=== PATIENT | male | born 1945 | race Caucasian/White ===

== ENCOUNTER → 2024-08-04 07:53 | Outpatient (REF) | payer MEDICARE, OTHER, SELFPAY ==
[2024-08-04 09:33] LABS: % Basophils 1.1 % (0-2); % Eosinophils 5.2 % (0-6); % Immature Granulocytes 0.1 % (0-0.5); % Lymphocytes 28.5 % (20.5-51.1); % Monocytes 9.2 % (1.7-9.3); % Neutrophils 55.9 % (42.2-75.2); Absolute Basophils 0.1 10^3/uL (0-0.2); Absolute Eosinophils 0.4 10^3/uL (0-0.7); Absolute Lymphocytes 2.1 10^3/uL (1.2-3.4); Absolute Monocytes 0.7 10^3/uL (0.1-0.6); Absolute Neutrophils 4.1 10^3/uL (1.4-6.5); Hematocrit 45.5 % (39.0-52.0); Hemoglobin 15.1 g/dL (13.0-18.0); Mean Corp Hgb Conc. 33.2 g/dL (33.0-37.0); Mean Corpuscular Volume 93.4 fL (80.0-94.0); Mean Platelet Volume 9.6 fL (7.4-10.4); Nucleated Red Blood Cells % 0 % (-); Platelet Count 217 10^3/uL (130-400); Red Blood Cell Count 4.87 10^6/uL (4.70-6.10); White Blood Cell Count 7.4 10^3/uL (4.8-10.8)
[2024-08-04 10:37] LABS: ALT (SGPT) 20 U/L (0-50); AST (SGOT) 26 U/L (17-59); Alkaline Phosphatase 58 U/L (38-126); Blood Urea Nitrogen 25 mg/dl (9-20); Calcium 9.3 mg/dl (8.4-10.2); Carbon Dioxide 31 mmol/L (22-30); Chloride 104 mmol/L (98-107); Glucose 100 mg/dl (70-99); HDL Cholesterol 59 mg/dl; LDL Cholesterol, Calculated 130 mg/dl; Potassium 4.1 mmol/L (3.5-5.1); Sodium 140 mmol/L (135-145); Total Bilirubin 0.9 mg/dl (0.2-1.3); Total Cholesterol 209 mg/dl (50-199); Total Protein 6.7 g/dl (6.3-8.2); Triglyceride 103 mg/dl (10-149); Very Low Density Lipoprotein 20 mg/dl (0-30); eGFR 56.93
[2024-08-04 11:01] LABS: Vitamin D, 25-OH*** 68.7 ng/mL (30-80)
[2024-08-04 11:07] LABS: TSH 4.52 uIU/ml (0.47-4.68)
== END ==
LOC: HWLAB 07:53
PROVIDERS: ATTENDING PHYSICIAN Internal Medicine Geriatric Medicine
DX: E78.2 Mixed hyperlipidemia (principal); E03.8 Other specified hypothyroidism; I10 Essential (primary) hypertension; Z79.899 Other long term (current) drug therapy; E55.9 Vitamin D deficiency, unspecified
CPT/HCPCS: 36415; 80053; 80061; 82306; 84443; 85025

== ENCOUNTER 2024-11-24 21:13 | Inpatient (IN) | payer MEDICARE, OTHER, SELFPAY ==
[2024-11-24] VITALS (15 sets, daily range): BP systolic 155–201; BP diastolic 81–102; BMI 29.1
[2024-11-24 16:08] LABS: Hematocrit 44.1 % (39.0-52.0); Hemoglobin 15.1 g/dL (13.0-18.0); Mean Corp Hgb Conc. 34.2 g/dL (33.0-37.0); Mean Corpuscular Hgb 31.1 pg (27.0-31.0); Mean Corpuscular Volume 90.7 fL (80.0-94.0); Mean Platelet Volume 9.8 fL (7.4-10.4); Platelet Count 204 10^3/uL (130-400); Red Blood Cell Count 4.86 10^6/uL (4.70-6.10); Red Cell Dist. Width 13.8 % (11.5-14.5); White Blood Cell Count 33.8 10^3/uL (4.8-10.8)
[2024-11-24] MEDS: ZOFRAN 4 MG IV (16:11)
[2024-11-24] MEDS: NSS 1000 IV (16:12)
[2024-11-24 16:16] LABS: ALT (SGPT) 32 U/L (0-50); AST (SGOT) 36 U/L (17-59); Albumin 4.1 g/dl (3.5-5.0); Alkaline Phosphatase 75 U/L (38-126); Blood Urea Nitrogen 89 mg/dl (9-20); Calcium 9.8 mg/dl (8.4-10.2); Carbon Dioxide 17 mmol/L (22-30); Chloride 102 mmol/L (98-107); Estimated Creatinine Clearance 7 ml/min; Glucose 151 mg/dl (70-99); Lipase 29 U/L (23-300); Potassium 5.9 mmol/L (3.5-5.1); Sodium 137 mmol/L (135-145); Total Bilirubin 1.1 mg/dl (0.2-1.3); Total Protein 7.1 g/dl (6.3-8.2); eGFR 5.27
--- NOTE | 2024-11-24 16:38 | ED.GENMED ---
History of Present Illness
<Cornelius Groves DO - Last Filed: 11/24/24 16:41>
General
Chief Complaint: Dehydration Symptoms
Time Seen by Provider: 11/24/24 15:38
<Paul Walsh PA-C - Last Filed: 11/24/24 19:07>
General
Source: patient and family
History of Present Illness
History of Present Illness:
79-year-old male with past medical history of hypertension presenting to the emergency department for evaluation stating he feels as if he is dehydrated, notes that about a week ago he was coughing/vomiting a phlegm/mucus, went to [facility]
urgent care and was given 'some type of tablet to make the phlegm go away' which he states he did. Patient also noted some nausea at that time but states that seem to have gotten better. He does note that over the last week he feels he has not
eaten or drank as much, has not had a bowel movement in about 4 to 5 days, no flatus during that time as well as had minimal urinary output. Patient denies any fevers, chills, rigors, chest pain or shortness of breath. Denies any history of
similar.
Past History
<Paul Walsh PA-C - Last Filed: 11/24/24 19:07>
Past History
ED Past Medical History: HTN
ED Past Surgical History: None
Social History
Tobacco: Non-smoker
Alcohol: None
Drug: None
Personal:
Living: with family
Employment: Retired
Review of Systems
<Paul Walsh PA-C - Last Filed: 11/24/24 19:07>
Review of Systems
All Other Systems: ROS reviewed and negative except as documented in HPI and ROS
Phy Exam
<Paul Walsh PA-C - Last Filed: 11/24/24 19:07>
Physical Exam
Physical Exam:
GENERAL: Alert , in no apparent distress, appears older than stated age, pale in appearance
HEAD: Normocephalic atraumatic
EYE: Clear conjunctiva
NECK: Supple
ENT: o/p clr, mmm.
CARDIAC: Regular rate and rhythm .
LUNGS: Clear breath sounds bilaterally, no acute respiratory distress, no wheezes/rales/rhonchi
ABDOMEN: Firm, distended, tender within the periumbilical region and suprapubic region, no rebound or guarding
NEUROLOGICAL: Alert and oriented
SKIN: Warm and dry, skin intact.
MUSCULOSKELETAL: well perfused.
PSYCH: Normal and appropriate interaction.
Scores
<Paul Walsh PA-C - Last Filed: 11/24/24 19:07>
Heart Failure Risk
Heart Failure Risk Score: Not Applicable
Heart Score for Chest Pain Patients
STEMI patient?: Not applicable
Withdrawal Assessment of Alcohol
Withdrawal Assessment Completed?: Not applicable
Course
<Cornelius Groves, DO - Last Filed: 11/24/24 16:41>
Orders/Labs/Results
Orders:
Orders
11/24/24 15:48
Complete Blood Count/With Diff Urgent
Comprehensive Metabolic Panel Urgent
Lipase Urgent
11/24/24 16:06
Diaz Placement- Treatment ONCE
Reason for insertion: Acute Retention
0.9% Sodium Chloride 1000 ml [Nss] 1,000 ml IV BOLUS
Iohexol [Omnipaque] See Protocol PO NOW STA
Ondansetron Injectable [Zofran] 4 mg IV NOW STA
11/24/24 16:16
Lactic Acid Q4H
Comment: CANCEL 2nd LACTIC ACID IF 1st LACTIC ACID IS LESS THAN 2
Blood Culture Q30M
ROLANDO Source: Blood/Venous
Specimen Description:
Blood Culture Q30M
ROLANDO Source: Blood/Venous
Specimen Description:
11/24/24 16:24
CT Abd/pel Without Iv Or Oral Urgent
Comment:
Reason For Exam: renal failure, abd pain
11/24/24 16:38
CefTRIAXone [Rocephin] 1,000 mg IV NOW STA
11/24/24 16:42
UA Reflex to Culture [Urinalysis Reflex To Culture] Urgent
Date Specimen was Collected: 11/24/24
Time Specimen was Collected: 16:41
Urine Microscopic Reflex Cult Urgent
11/24/24 17:[address] Non Medication Order As Directed
Physician Order: clamp diaz (at 5pm)- drain remained of bladder at 5:30 and leave diaz to bag drainage
Above order entered?: Yes
11/24/24 17:19
Catheter- Indwelling As Directed
Reason for insertion: Urology Determination
Catheter-Hand Irrigation As Directed
Solution:: Sterile 0.9% NaCl
Amount: 100-200cc
Frequency: prn
Reason for hand irrigation: clots/obstruction
Irrigate via:: Catheter directly
Abnormal Lab Results
11/24/24 11/24/24
15:48 16:42
WBC 33.8 H 10^3/uL
(4.8-10.8)
MCH 31.1 H pg
(27.0-31.0)
Abs Immat Gran (auto) 0.2 H 10^3/uL
(0-0.05)
Absolute Neuts (auto) 31.3 H 10^3/uL
(1.4-6.5)
Absolute Lymphs (auto) 0.5 L 10^3/uL
(1.2-3.4)
Absolute Monos (auto) 1.7 H 10^3/uL
(0.1-0.6)
Immature Gran % 0.7 H %
(0-0.5)
Neutrophils % 92.6 H %
(42.2-75.2)
Lymphocytes % 1.4 L %
(20.5-51.1)
Potassium 5.9 H mmol/L
(3.5-5.1)
Carbon Dioxide 17 L mmol/L
(22-30)
BUN 89 H mg/dl
(9-20)
Creatinine 9.4 H* mg/dL
(0.7-1.3)
Glucose 151 H mg/dl
(70-99)
Ur Occult Blood Reflex 2+ A
(Negative)
Urine RBC 11-15 A /HPF
(0-2)
Urine Bacteria (Reflex) Few A
(Negative)
Urine Albumin (Reflex) 1+ A
(Neg - Trace)
11/24/24 15:48
11/24/24 15:48
Vital Signs
Initial and Last Documented VS:
Initial Vital Signs
Temp Pulse Resp BP Pulse Ox
98.5 F 78 16 178/102 95
11/24/24 14:50 11/24/24 14:50 11/24/24 14:50 11/24/24 14:50 11/24/24 14:50
Last Documented Vital Signs
Temp Pulse Resp BP Pulse Ox
98.5 F 76 16 168/81 97
11/24/24 14:50 11/24/24 17:00 11/24/24 14:50 11/24/24 18:00 11/24/24 18:15
<Paul Walsh PA-C - Last Filed: 11/24/24 19:07>
Orders/Labs/Results
Orders:
Orders
11/24/24 15:48
Complete Blood Count/With Diff Urgent
Comprehensive Metabolic Panel Urgent
Lipase Urgent
11/24/24 16:06
Diaz Placement- Treatment ONCE
Reason for insertion: Acute Retention
0.9% Sodium Chloride 1000 ml [Nss] 1,000 ml IV BOLUS
Iohexol [Omnipaque] See Protocol PO NOW STA
Ondansetron Injectable [Zofran] 4 mg IV NOW STA
11/24/24 16:16
Lactic Acid Q4H
Comment: CANCEL 2nd LACTIC ACID IF 1st LACTIC ACID IS LESS THAN 2
Blood Culture Q30M
ROLANDO Source: Blood/Venous
Specimen Description:
Blood Culture Q30M
ROLANDO Source: Blood/Venous
Specimen Description:
11/24/24 16:24
CT Abd/pel Without Iv Or Oral Urgent
Comment:
Reason For Exam: renal failure, abd pain
11/24/24 16:38
CefTRIAXone [Rocephin] 1,000 mg IV NOW STA
11/24/24 16:42
UA Reflex to Culture [Urinalysis Reflex To Culture] Urgent
Date Specimen was Collected: 11/24/24
Time Specimen was Collected: 16:41
Urine Microscopic Reflex Cult Urgent
11/24/24 17:[address] Non Medication Order As Directed
Physician Order: clamp diaz (at 5pm)- drain remained of bladder at 5:30 and leave diaz to bag drainage
Above order entered?: Yes
11/24/24 17:19
Catheter- Indwelling As Directed
Reason for insertion: Urology Determination
Catheter-Hand Irrigation As Directed
Solution:: Sterile 0.9% NaCl
Amount: 100-200cc
Frequency: prn
Reason for hand irrigation: clots/obstruction
Irrigate via:: Catheter directly
Abnormal Lab Results
11/24/24 11/24/24
15:48 16:42
WBC 33.8 H 10^3/uL
(4.8-10.8)
MCH 31.1 H pg
(27.0-31.0)
Abs Immat Gran (auto) 0.2 H 10^3/uL
(0-0.05)
Absolute Neuts (auto) 31.3 H 10^3/uL
(1.4-6.5)
Absolute Lymphs (auto) 0.5 L 10^3/uL
(1.2-3.4)
Absolute Monos (auto) 1.7 H 10^3/uL
(0.1-0.6)
Immature Gran % 0.7 H %
(0-0.5)
Neutrophils % 92.6 H %
(42.2-75.2)
Lymphocytes % 1.4 L %
(20.5-51.1)
Potassium 5.9 H mmol/L
(3.5-5.1)
Carbon Dioxide 17 L mmol/L
(22-30)
BUN 89 H mg/dl
(9-20)
Creatinine 9.4 H* mg/dL
(0.7-1.3)
Glucose 151 H mg/dl
(70-99)
Ur Occult Blood Reflex 2+ A
(Negative)
Urine RBC 11-15 A /HPF
(0-2)
Urine Bacteria (Reflex) Few A
(Negative)
Urine Albumin (Reflex) 1+ A
(Neg - Trace)
11/24/24 15:48
11/24/24 15:48
Vital Signs
Initial and Last Documented VS:
Initial Vital Signs
Temp Pulse Resp BP Pulse Ox
98.5 F 78 16 178/102 95
11/24/24 14:50 11/24/24 14:50 11/24/24 14:50 11/24/24 14:50 11/24/24 14:50
Last Documented Vital Signs
Temp Pulse Resp BP Pulse Ox
98.5 F 76 16 168/81 97
11/24/24 14:50 11/24/24 17:00 11/24/24 14:50 11/24/24 18:00 11/24/24 18:15
Procedures
<Cornelius Groves DO - Last Filed: 11/24/24 16:41>
Urinary Catheter
Procedure completed by: Cornelius Groves DO
Type of urinary catheter: indwelling catheter
Catheter size (hebrew): 14
Urine description: clear
Urine output (ml): 100
<Paul Walsh PA-C - Last Filed: 11/24/24 19:07>
MDM/Problems Addressed
Differential Diagnosis Includes:
Bowel obstruction, constipation, diverticulitis, electrolyte derangement, urinary tract infection, urinary retention, prostatitis/BPH
MDM/Problems Addressed:
79-year-old male presenting to the ER stating he feels as if he is dehydrated. Patient has not had any nausea vomiting or diarrhea but does note he has not had a bowel movement nor flatus over the last few days and has had minimal urinary output.
Bedside bladder scan shows almost 1100 mL of urine within the bladder. Will place Diaz catheter for this. Lab work was initiated on arrival. CT scan with oral and IV contrast ordered for suspicion of bowel obstruction. Anticipate admission
<Paul Walsh PA-C - Last Filed: 11/24/24 19:07>
*Radiology
Radiology exam reviewed: radiology read reviewed
*Pulse Oximetry
Patient hypoxic: no
*Air Tester Interpretation
Rate: normal
Rhythm: sinus
*Critical Care Note
Total Time (30-74mins, 75-104mins- exclusive of procedures): 35
comment:
Critical care statement: A total of 35 minutes of critical care time was provided for this patient. This includes management of unstable vital signs, evaluation of the patient at bedside, reviewing the patient's pertinent medical records, discussion
with consultants, review of old EKGs and review of pertinent medical records. This time with separate from time utilized to perform the aforementioned documented procedures
Data Reviewed
Review of Other/Old Records Reveals: Labs and Records
Source: patient and records
<Paul Walsh PA-C - Last Filed: 11/24/24 19:07>
Comment
Comment:
4:30 PM - patient's labs show a leukocytosis of 33,000. There is also significant uremia with a creatinine of 9.4, BUN of 89, bicarb of 17 and a potassium of 5.9. I suspect this is all from obstructive uropathy. Patient with hypospadias and
difficulty placing Diaz catheter. Dr. Groves able to place 14 Angolan Diaz catheter which drained significant clear yellow urine. Given patient's cute kidney injury his CT scan was changed to a noncontrast study. Both urology and nephrology were
notified. Rocephin ordered. Plan for admission
Patient Management
Discussion with other providers: Hospitalist and Pilot Can Router
Escalation/DeEscalation of care consider admission/obs:
Hospitalist team accepts for continued evaluation and treatment of acute renal failure that is likely related to patient's acute urinary retention
ED Attending Note
<Cornelius Groves, - Last Filed: 11/24/24 16:41>
ED Attending Note
Patient seen and examined by attending physician: Yes
I performed the substantive portion of visit, reviewed & personally made and approve the management plan that is documented in note by myself or HALI.: Yes
ED Attending Note:
I have seen and evaluated the patient with a [id number] encounter. I have spoken to the advance practicer provider and involved in the medical history, the physical exam, medical decision making.
Evaluation and management service: agree unless noted differently below.
Results interpretation: agree unless noted differently below.
Focused HPI: 79-year-old male presenting for evaluation of generalized fatigue and dehydration
Physical exam: Palpable bladder. Generalized fatigue. No acute distress
Medical Decision Making: Blood work shows acute renal failure. Patient found to have distended bladder. Patient does have hypospadias and nursing unable to pass catheter. I did place a 14 Angolan catheter without complication. Clear yellow urine
started to drain
<Paul Walsh PA-C - Last Filed: 11/24/24 19:07>
-
Portions of this chart may have been created with voice recognition software.� Occasional wrong word or��sound alike� substitutions may have occurred due to the inherent limitations of voice recognition software.
Discharge Plan
Departure
Patient Disposition: Admit
Date of Disposition: 11/24/24
Time of Disposition: 18:19
Presentation/result/management discussed w/ accepting MD/DO: Hospitalist
Discharge Problem:
Acute renal failure
Prescriptions:
No Action
Theragen Tablet
1 tab PO DAILY
bisacodyl [Dulcolax (bisacodyl)] 10 mg Suppository
10 mg TN DAILYPRN PRN (Reason: constipation)
ondansetron 4 mg Tablet,Disintegrating
4 mg PO [id number] PRN (Reason: nausea)
finasteride 5 mg Tablet
5 mg PO DAILY
olmesartan 20 mg Tablet
20 mg PO DAILY
Referrals:
Jagjit Hernandez MD [Family Provider] -
Interventions
Interventions:
*Risk Screen - Suicide Last Done: 11/24/24 14:50
*General Assessment Last Done: 11/24/24 14:50
*Neglect/Abuse Screening Last Done: 11/24/24 16:13
*ED- Fall Risk Assessment Last Done: 11/24/24 16:13
*ED COVID-19 Vaccine History Last Done: 11/24/24 14:50
ED- Cardiac Assessment Last Done: 11/24/24 16:46
ED- Neurological Assessment Last Done: 11/24/24 16:46
ED- Pulmonary Assessment Last Done: 11/24/24 16:46
Discharge Date and Time
Print Language: DIVEHI
[2024-11-24] MEDS: ROCEPHIN 1000 MG IV (16:40)
[2024-11-24 16:46] LABS: % Basophils 0.3 % (0-2); % Immature Granulocytes 0.7 % (0-0.5); % Lymphocytes 1.4 % (20.5-51.1); % Neutrophils 92.6 % (42.2-75.2); Absolute Basophils 0.1 10^3/uL (0-0.2); Absolute Immature Granulocytes 0.2 10^3/uL (0-0.05); Absolute Lymphocytes 0.5 10^3/uL (1.2-3.4); Absolute Monocytes 1.7 10^3/uL (0.1-0.6); Absolute Neutrophils 31.3 10^3/uL (1.4-6.5); Nucleated Red Blood Cells % 0 % (-)
[2024-11-24 16:49] LABS: Urine Albumin 1+ (Neg - Trace); Urine Bilirubin Negative (Negative); Urine Character Clear (Clear); Urine Color Yellow; Urine Glucose Negative (Negative); Urine Ketone Negative (Negative); Urine Leukocyte Negative (Negative); Urine Nitrite Negative (Negative); Urine Occult Blood 2+ (Negative); Urine Specific Gravity 1.015 (<1.030); Urine Urobilinogen Negative (Neg - 1+)
[2024-11-24 16:51] LABS: Lactic Acid 1.2 mmol/L (0.7-2.0)
[2024-11-24 16:55] LABS: Urine Mucus Few
[2024-11-24 16:56] LABS: Urine Bacteria Few (Negative); Urine White Cell 0-2 /HPF (0-5)
--- NOTE | 2024-11-24 17:19 | CON.MD ---
Consultation - Medical
-
see dictated note
pt followed by dr prakash- long hx of BPH/elevated psa
prev bx in 2019
maintained on proscar
last psa
not feeling well over the last 4weeks- last week sig difficulty urinating and moving bowels
presents to ER in [facility] and with > 1 liter retention
pt with hypospaidus- nurse able to place 14 north k[place] cath- currently draining clear urine
plan
diaz
drain bladder slowly- reviewed with nurse
pt will have hematuria- would hold any blood thinners including sub q for now
track cr level
would rec noncontrast abd/pelvis CT
will follow
--- NOTE | 2024-11-24 20:52 | HPS.HSE ---
Family Physician
-
Family Physician: Jagjit Hernandez
Chief Complaint
-
Abd discomfort, Difficulty urinating.
History of Present Illness
Patient is a 79y M with PMH significant for hypertension and BPH who presents to ED complaining of difficulty urinating and having BM for several days. Patient states that he has had a few, pencil-thin stools and perhaps a few tiny dribble of
urine in total over the past 3-4 days. Patient reports some minor abdominal distention and discomfort. He had a few episodes of N/V several days ago - and has not been eating / drinking since that time. Patient states that his symptoms started
with cough / cold symptoms that he had about one month ago. He took some OTC medications and some abx (cannot recall name - ? Z-pack) with improvement in those symptoms.
He denies any prior history of urinary difficulties - though he is followed by Urology for BPH and he states that TURP has been discussed in the past.
In the ED, patient had Eli catheter placed for initial return of 1000cc of urine. (> 1500 cc total at the time of my examination).
He states that he is feeling improved from initial arrival.
Patient was seen by Urology in the ED.
Medical History
Past Medical History
Past Medical History: Reports Other
Additional Past Medical History:
Hypertension
BPH
Past Surgical History: Reports Other
Additional Past Surgical History:
Herniorrhaphy
Cataracts
Rectal Polypectomy
Social History
Tobacco: Non-smoker
Alcohol: Occasional
Drug: None
Family History
Family History: Not pertinent
Allergies / Home Medications
Allergies reflects when Allergies were last updated in [facility].
Home Medications with original date entered in [facility]
Allergy/Medication List:
Allergies
Allergy/AdvReac Type Severity Reaction Status Date / Time
amoxicillin [Amoxicillin] Allergy 'hyper' Verified 11/24/24 14:53
Home Medications
bisacodyl 10 mg rectal suppository (Dulcolax (bisacodyl)) 10 mg ME DAILYPRN PRN constipation 11/24/24
finasteride 5 mg tablet 5 mg PO DAILY 11/24/24
olmesartan 20 mg tablet 20 mg PO DAILY 11/24/24
ondansetron 4 mg disintegrating tablet 4 mg PO [id number] PRN nausea 11/24/24
therapeutic multivitamin 1 tab PO DAILY 11/24/24
Review of Systems
-
History Source: Patient
A 12 point ROS was completed and negative except as noted: Yes
Constitutional: Denies Fever or Chills
Respiratory: Denies Cough or Trouble Breathing
Cardiac: Denies Chest Pain or Palpitations
Abdomen/GI: Reports Abdominal Pain, Nausea, Vomiting and Constipated
: Reports Difficulty Voiding; Denies Dysuria, Frequency or Flank Pain
Neurological: Denies Dizzy or Headache
Psych: Denies Depression or Anxiety
Physical Exam
Vital Signs
Vital Signs
Temp Pulse Resp BP Pulse Ox
98.5 F 76 16 177/87 94
11/24/24 14:50 11/24/24 17:00 11/24/24 14:50 11/24/24 20:30 11/24/24 20:30
Physical Exam
General: Other (79y M in no acute distress.)
HEENT: Moist mucous membranes
Respiratory: Clear; No Wheezes, Rales or Rhonchi
Cardiac: S1/S2 and Regular Rhythm; No Murmur
GI: Other (Abdomen is distended. Pos tenderness lower abdomen / LLQ. Bowel sounds present but diminished.)
Genito-urinary: Other (Eli in place draining dark yellow urine.)
Musculoskeletal: No Clubbing, No Cyanosis and No Edema
Neuro: AO x 3
Laboratory Results
-
11/24/24 15:48
11/24/24 15:48
Laboratory Results
Lactic Acid Cancelled 11/24/24 20:15
Total Bilirubin 1.1 mg/dl (0.2-1.3) 11/24/24 15:48
AST 36 U/L (17-59) 11/24/24 15:48
ALT 32 U/L (0-50) 11/24/24 15:48
Alkaline Phosphatase 75 U/L (38-126) 11/24/24 15:48
Lipase 29 U/L (23-300) 11/24/24 15:48
Impression/Plan
-
A/P: Patient is a 79y M with PMH significant for hypertension and BPH who presents to ED complaining of difficulty urinating / having BM x several days.
Urinary Retention
BPH
ALEXANDRA secondary to the above
Hyperkalemia
- Admit for further evaluation and treatment.
- Patient presents with > 1500 cc of retained urine, SCr = 9.4 (baseline = 1.3) and anion gap metabolic acidosis.
- Suspect that ALEXANDRA / hyperkalemia is secondary to obstruction.
- Maintain Eli catheter.
- Continue finasteride. Begin tamsulosin.
- Appreciate Urology evaluation.
- IVF support and follow for improvement in labs / lytes.
- Nephrology evaluation for additional recommendations.
Leukocytosis
Possible Descending Colitis
Constipation
- WBC = 33 with left shift. Afebrile and non-toxic appearing.
- CT done in the ED shows possible descending colon inflammation.
- Continue ceftriaxone for possible urinary source (though initial UA is unremarkable).
- Add metronidazole for now for possible colitis / diverticulitis.
- Follow for improvement.
- Bowel regimen for constipation - likely contributing to some degree to urinary issues.
Benign Hypertension
- BP markedly elevated on arrival - likely due to acute retention / discomfort.
- Improved s/p Eli placement.
- Continue usual home olmesartan and adjust as needed.
DVT Prophylaxis: SCDs - Avoid chemical prophylaxis due to risk of bleeding after bladder decompression.
Code Status: Full
--- NOTE | 2024-11-24 23:55 | PTCARENOTE ---
Pt received from ED via stretcher at 2350. Pt pleasant, AAOX3, VSS, and able to ambulate into room with assistance. Pt absent of pain at this time. Pt receptive to room and call ribera. Pt bed in lowest position and call ribera within reach. Pt educated
manager collection ribera usage, pt relays understanding and cooperation. Will continue with current plan of care.
[2024-11-25] VITALS (7 sets, daily range): BP systolic 143–165; BP diastolic 68–86; BMI 27.0
[2024-11-25] MEDS: NSS 1000 IV ×3 (00:42→20:30)
[2024-11-25] MEDS: FLAGYL 500 MG 100 IV ×4 (00:43→23:13)
[2024-11-25] MEDS: SENOKOT 17.2 MG PO ×2 (00:46→20:35)
[2024-11-25] MEDS: PROSCAR PO ×2 (08:12→08:17)
[2024-11-25] MEDS: BENICAR 20 MG PO (08:13)
[2024-11-25] MEDS: FLOMAX 0.4 MG PO (08:13)
[2024-11-25] MEDS: COLACE 100 MG PO ×2 (08:13→20:35)
[2024-11-25 08:34] LABS: Hematocrit 37.2 % (39.0-52.0); Hemoglobin 12.5 g/dL (13.0-18.0); Mean Corp Hgb Conc. 33.6 g/dL (33.0-37.0); Mean Corpuscular Hgb 30.6 pg (27.0-31.0); Mean Platelet Volume 10.3 fL (7.4-10.4); Platelet Count 174 10^3/uL (130-400); Red Blood Cell Count 4.09 10^6/uL (4.70-6.10); Red Cell Dist. Width 13.7 % (11.5-14.5); White Blood Cell Count 22.4 10^3/uL (4.8-10.8)
[2024-11-25 09:21] LABS: Blood Urea Nitrogen 78 mg/dl (9-20); Calcium 8.7 mg/dl (8.4-10.2); Carbon Dioxide 21 mmol/L (22-30); Chloride 109 mmol/L (98-107); Estimated Creatinine Clearance 12 ml/min; Glucose 98 mg/dl (70-99); Magnesium 2.3 mg/dl (1.6-2.3); Potassium 4.5 mmol/L (3.5-5.1); Sodium 141 mmol/L (135-145); eGFR 10.48
--- NOTE | 2024-11-25 11:15 | W.PN.HOSP.TC ---
Today's Communication/Plan
-
see plan
Assessment / Plan
Assessment / Plan
79y M with PMH significant for hypertension and BPH who presents to ED complaining of difficulty urinating / having BM x several days.
Gen: NAD, AAOx3.
Eyes: EOMI, PERRLA, no scleral icterus.
Neck: supple.
CV: RRR, +S1/S2, no m/r/g.
Resp: CTAB, no rales, wheezes, or rhonchi.
Abd: +BS, soft, NT, ND
Skin: No rashes.
Neuro: CN 2-12 intact, non-focal.
Psych: Normal mood and affect.
CT A/P: There is stranding along the splenic flexure/proximal descending colon suspicious for colitis. There is no hydronephrosis or obstructing renal calculus. There is mild circumferential urinary bladder wall thickening which may be sequelae of
chronic indwelling Eli catheter, chronic outlet obstruction, however can be seen with cystitis. Additionally there is nonspecific perinephric edema. Consider correlation with urinalysis to exclude infection. There is bilateral renal atrophy with
numerous hypodense lesions, some of which are not well characterized on this examination and others of which represent cysts. An enhanced CT or MRI for further evaluation may be considered as clinically warranted. Severe prostatomegaly.
Cholelithiasis with a 1.9 cm stone in the gallbladder neck. There is no CT evidence suggestive of acute cholecystitis. Further evaluation with dedicated right upper quadrant ultrasound may be considered as clinically warranted.
Acute Urinary Retention and ALEXANDRA with hyperkalemia due to severe prostamegaly:
-p/w'd with > 1500 cc of retained urine, SCr = 9.4 (baseline = 1.3) and anion gap metabolic acidosis.
-Suspect that ALEXANDRA / hyperkalemia is secondary to obstruction. Cr now 5.3, K now 4.5.
-Maintain Eli catheter.
-Continue finasteride/tamsulosin.
-cont IVFs
-Uro following, discussed with urology
-renal c/s
Leukocytosis
Possible Descending Colitis
Constipation
- WBC 33 on admission with left shift. Afebrile and non-toxic appearing.
- CT done in the ED shows possible descending colon inflammation.
- Continue ceftriaxone/metronidazole for now for possible colitis / diverticulitis.
- Bowel regimen for constipation - likely contributing to some degree to urinary issues.
Essential Hypertension:
-stop Olmesartan with ALEXANDRA
-IV hydralazine PRN
Family updated at bedside.
DVT Prophylaxis: SCDs - Avoid chemical prophylaxis due to risk of bleeding after bladder decompression. This was discussed with Dr. Castro on 11/25/24 at 1216 over [facility]. He continues to recommend against pharmacological DVT prophylaxis
for today.
Family updated at bedside.
Code Status: Full
Anticipated Discharge: > 48 hours
Subjective/Interval History
-
Date of Service: November 25, 2024
No new complaints. Denies chest pain, shortness of breath, abdominal pain.
Objective Data
-
Labs:
Laboratory Results
11/25/24
07:35
WBC 22.4 H
Hgb 12.5 L
Hct 37.2 L
Plt Count 174
Sodium 141
Potassium 4.5
Chloride 109 H
Carbon Dioxide 21 L
BUN 78 H
Creatinine 5.3 H*
Glucose 98
Calcium 8.7
Vital Signs:
Vital Signs
Temp Pulse Resp BP Pulse Ox
98.5 F 75 18 150/78 93
11/25/24 11:10 11/25/24 11:10 11/25/24 11:10 11/25/24 11:10 11/25/24 11:10
I&O
11/24/24 11/25/24 11/26/24
06:59 06:59 06:59
Intake Total 1120 / 1120
Output Total 1750 / 1750
Balance -630 / -630
--- NOTE | 2024-11-25 11:50 | W.CON.NEPH ---
Consultation
-
Date/Time Consultation Requested: November 25, 2024 at 7 AM
Date/Time Consultation Performed: November 25, 2024 at 11 AM
Requesting Provider: Dr. Rojo
Performing Provider: Dr. Laird
Reason for Consultation: Acute kidney injury
Medical History
-
Chief Complaint: Acute kidney injury
History of Present Illness:
79y M with PMH significant for hypertension and BPH who presents to ED complaining of difficulty urinating and having BM for several days. Decreased urine output over the last 4 days
Mild abdominal distention.
He had a few episodes of N/V several days ago - and has not been eating / drinking since that time.
He was given antibiotics for cough which she is uncertain to which ones
followed by Urology for BPH and he states that TURP has been discussed in the past.
In the ED, patient had Eli catheter placed for initial return of 1000cc of urine.
Renal consult for acute kidney injury creatinine of 9.4 with baseline creatinine 1.26 July 2024.
Past Medical History
PMH significant for hypertension and BPH
Social History
Tobacco: Non-Smoker
Alcohol: None
Family History
Family History: Not Pertinent
Allergies / Home Medications
Allergy/AdvReac Type Severity Reaction Status Date / Time
amoxicillin [Amoxicillin] Allergy 'hyper' Verified 11/24/24 14:53
�Medication �Instructions �Recorded �Confirmed �Type
bisacodyl 10 mg rectal suppository 10 mg MI DAILYPRN PRN constipation 11/24/24 11/24/24 History
(Dulcolax (bisacodyl))
finasteride 5 mg tablet 5 mg PO DAILY Urinary Issue 11/24/24 11/24/24 History
olmesartan 20 mg tablet 20 mg PO DAILY Blood Pressure 11/24/24 11/24/24 History
ondansetron 4 mg disintegrating 4 mg PO [id number] PRN nausea 11/24/24 11/24/24 History
tablet
therapeutic multivitamin 1 tab PO DAILY Supplement 11/24/24 11/24/24 History
Review of Systems
-
No chest pain or shortness of breath, cough
All other systems: Negative unless noted
Physical Exam
Vital Signs
Vital Signs
Temp Pulse Resp BP Pulse Ox
98.5 F 75 18 150/78 93
11/25/24 11:10 11/25/24 11:10 11/25/24 11:10 11/25/24 11:10 11/25/24 11:10
Lab Results
WBC 22.4 10^3/uL (4.8-10.8) H 11/25/24 07:35
RBC 4.09 10^6/uL (4.70-6.10) L 11/25/24 07:35
Hgb 12.5 g/dL (13.0-18.0) L 11/25/24 07:35
Hct 37.2 % (39.0-52.0) L 11/25/24 07:35
Plt Count 174 10^3/uL (130-400) 11/25/24 07:35
Sodium 141 mmol/L (135-145) 11/25/24 07:35
Potassium 4.5 mmol/L (3.5-5.1) 11/25/24 07:35
Chloride 109 mmol/L (98-107) H 11/25/24 07:35
Carbon Dioxide 21 mmol/L (22-30) L 11/25/24 07:35
BUN 78 mg/dl (9-20) H 11/25/24 07:35
Creatinine 5.3 mg/dL (0.7-1.3) H* 11/25/24 07:35
eGFR 10.48 11/25/24 07:35
Glucose 98 mg/dl (70-99) 11/25/24 07:35
Calcium 8.7 mg/dl (8.4-10.2) 11/25/24 07:35
Phosphorus 5.0 mg/dl (2.5-4.5) H 11/25/24 07:35
Albumin 4.1 g/dl (3.5-5.0) 11/24/24 15:48
Physical Exam
General no acute distress
HEENT no cephalic atraumatic extraocular muscle intact no scleral icterus no JVD neck supple
lungs clear to auscultation bilateral
heart regular S1-S2 positive
abdomen soft nontender positive bowel sounds
extremities no edema pulses present bilateral
Neurologically nonfocal alert and oriented x 3
Skin no lesions no abrasions no petechiae
Psych normal affect no bizarre behavior
Data Reviewed
-
CT Scan: Image Personally Visualized and interpreted
Labs: Labs Reviewed by me and Discussed with Patient
Assessment/Plan
-
79y M with PMH significant for hypertension and BPH who presents to ED complaining of difficulty urinating and having BM for several days. Decreased urine output over the last 4 days
Mild abdominal distention.
He had a few episodes of N/V several days ago - and has not been eating / drinking since that time.
He was given antibiotics for cough which she is uncertain to which ones
followed by Urology for BPH and he states that TURP has been discussed in the past.
In the ED, patient had Eli catheter placed for initial return of 1000cc of urine.
Renal consult for acute kidney injury creatinine of 9.4 with baseline creatinine 1.26 July 2024.
Likely obstructive
Impression.
Acute kidney injury with creatinine of 9 on admission baseline creatinine 1.3.
Responded to Eli catheter making urine the creatinine improved to 5.3.
BPH history
Hypertension
Plan.
Hold olmesartan
Continue IV fluid
Eli catheter
Urology consult
--- NOTE | 2024-11-25 12:05 | W.PN.URO.CBU ---
Today's Communication / Plan
-
contiune diaz and monitor electrolytes
Assessment / Plan
-
BPH with acute urinary retention and ARF
hypospadius
diaz in place
urine clear
cr declining
CT with no acute findings
continue proscar
will follow
Diagnosis
-
Date of Service: November 25, 2024
-
Patient Diagnosis:
BPH
elevated psa
urinary retention
ARF
hypospadius
Subjective
-
pt feels ok
urine clear
cr declining
CT scan shows no hydro- bilateral cysts- large prostate
Objective
-
Vital Signs
Temp Pulse Resp BP Pulse Ox
98.5 F 75 18 150/78 93
11/25/24 11:10 11/25/24 11:10 11/25/24 11:10 11/25/24 11:10 11/25/24 11:10
Intake and Output
11/24/24 11/25/24 11/26/24
06:59 06:59 06:59
Intake Total 1120 / 1120
Output Total 1750 / 1750
Balance -630 / -630
Intake:
Oral fluids 420 / 420
IV fluids (Total) 700 / 700
Output:
Urine, Diaz 1750 / 1750
Other:
Number of approximated MODERATE 1
amounts of urine
Laboratory Results
11/25/24 07:35
11/25/24 07:35
Review of Systems
-
Constitutional: Fatigue
Respiratory: No Symptoms
Cardiac: No Symptoms
Abdomen/GI: No Symptoms
Physical Exam
-
General - w no acute distress
Abdomen - soft, non-tender
Genitalia - hypospadius/diaz in place
--- NOTE | 2024-11-25 13:05 | CM ---
CM reviewed chart, patient seen bedside with and son, initial assessment completed. Patient resides with in a one story home with basement, five small steps to enter. Patient denies use of DME in the home. Patient denies VN/SNF history.
Patient PCP Dr. Hernandez, pharmacy [facility], confirms prescription coverage through [facility]. Urology following patient. CM will continue to follow for all discharge planning needs.
Plan; return home with family upon discharge, watch for possible VN needs.
[2024-11-25] MEDS: ROCEPHIN 1000 MG IV (15:11)
[2024-11-25] MEDS: STERILE WATER FOR INJECTION 10 ML IV (15:11)
[2024-11-26 03:01] VITALS: BP 158/77
[2024-11-26] MEDS: NSS 1000 IV (06:01)
[2024-11-26 07:18] VITALS: BP 166/85
[2024-11-26] MEDS: FLOMAX 0.4 MG PO (08:55)
[2024-11-26] MEDS: COLACE 100 MG PO (08:55)
[2024-11-26] MEDS: FLAGYL 500 MG 100 IV ×2 (08:55→14:57)
[2024-11-26] MEDS: PROSCAR PO ×2 (08:55→08:57)
--- NOTE | 2024-11-26 10:54 | W.PN.HOSP.TC ---
Today's Communication/Plan
-
see bold
Assessment / Plan
Assessment / Plan
79y M with PMH significant for hypertension and BPH who presents to ED complaining of difficulty urinating / having BM x several days.
Gen: NAD, AAOx3.
Eyes: EOMI, PERRLA, no scleral icterus.
Neck: supple.
CV: remains RRR, +S1/S2, no m/r/g.
Resp: remains CTAB, no rales, wheezes, or rhonchi.
Abd: +BS, soft, NT, ND
Skin: No rashes.
: diaz with clear urine
Neuro: CN 2-12 intact, non-focal.
Psych: Normal mood and affect.
CT A/P: There is stranding along the splenic flexure/proximal descending colon suspicious for colitis. There is no hydronephrosis or obstructing renal calculus. There is mild circumferential urinary bladder wall thickening which may be sequelae of
chronic indwelling Diaz catheter, chronic outlet obstruction, however can be seen with cystitis. Additionally there is nonspecific perinephric edema. Consider correlation with urinalysis to exclude infection. There is bilateral renal atrophy with
numerous hypodense lesions, some of which are not well characterized on this examination and others of which represent cysts. An enhanced CT or MRI for further evaluation may be considered as clinically warranted. Severe prostatomegaly.
Cholelithiasis with a 1.9 cm stone in the gallbladder neck. There is no CT evidence suggestive of acute cholecystitis. Further evaluation with dedicated right upper quadrant ultrasound may be considered as clinically warranted.
Acute Urinary Retention and ALEXANDRA with hyperkalemia due to severe prostamegaly:
-p/w'd with > 1500 cc of retained urine, SCr = 9.4 (baseline = 1.3) and anion gap metabolic acidosis.
-Suspect that ALEXANDRA / hyperkalemia is secondary to obstruction.
-AM labs pending
-Maintain Diaz catheter.
-Continue finasteride/tamsulosin
-s/p IVFs
-Uro/renal following
Leukocytosis
Possible Descending Colitis
Constipation
- WBC 33 on admission with left shift. Afebrile and non-toxic appearing.
- CT done in the ED shows possible descending colon inflammation.
- Continue ceftriaxone/metronidazole for now for possible colitis / diverticulitis.
- Bowel regimen for constipation - likely contributing to some degree to urinary issues. Mag citrate today.
Essential Hypertension:
-Olmesartan stopped with ALEXANDRA
-IV hydralazine PRN
Family updated at bedside.
DVT Prophylaxis: SCDs - Avoid chemical prophylaxis due to risk of bleeding after bladder decompression. This was discussed with Dr. Castro on 11/25/24 at 1216 over [facility]. Will ask Dr. Castro if he is OK with Heparin for DVT prophylaxis
today.
Code Status: Full
Anticipated Discharge: 24 - 48 hours
Subjective/Interval History
-
Date of Service: November 26, 2024
Reports no BM in one week. Denies CP/SOB.
Objective Data
-
Labs:
Laboratory Results
11/26/24
10:53
WBC Pending
Hgb Pending
Hct Pending
Plt Count Pending
Sodium Pending
Potassium Pending
Chloride Pending
Carbon Dioxide Pending
BUN Pending
Creatinine Pending
Glucose Pending
Calcium Pending
Vital Signs:
Vital Signs
Temp Pulse Resp BP Pulse Ox
98.5 F 62 18 166/85 95
11/26/24 07:18 11/26/24 07:18 11/26/24 07:18 11/26/24 07:18 11/26/24 07:18
I&O
11/25/24 11/26/24 11/27/24
06:59 06:59 06:59
Intake Total 1120 / 1120 1800 / 1800
Output Total 1750 / 1750 1999 / 1999
Balance -630 / -630 -200 / -200
[2024-11-26 11:28] VITALS: BP 186/88
[2024-11-26 11:28] LABS: Hematocrit 37.4 % (39.0-52.0); Hemoglobin 12.8 g/dL (13.0-18.0); Mean Corp Hgb Conc. 34.2 g/dL (33.0-37.0); Mean Corpuscular Hgb 31.2 pg (27.0-31.0); Mean Corpuscular Volume 91.2 fL (80.0-94.0); Mean Platelet Volume 9.9 fL (7.4-10.4); Platelet Count 147 10^3/uL (130-400); Red Cell Dist. Width 13.5 % (11.5-14.5); White Blood Cell Count 13.4 10^3/uL (4.8-10.8)
[2024-11-26 11:31] LABS: Blood Urea Nitrogen 55 mg/dl (9-20); Calcium 8.3 mg/dl (8.4-10.2); Carbon Dioxide 25 mmol/L (22-30); Chloride 114 mmol/L (98-107); Estimated Creatinine Clearance 27 ml/min; Glucose 128 mg/dl (70-99); Potassium 4.4 mmol/L (3.5-5.1); Sodium 142 mmol/L (135-145); eGFR 27.11
--- NOTE | 2024-11-26 11:38 | W.PN.URO.CBU ---
Today's Communication / Plan
-
teach diaz and leg bag care
Assessment / Plan
-
BPH with acute urinary retention and ARF
hypospadius
diaz in place
urine clear
cr declining
CT with no acute findings
continue proscar
will follow
Diagnosis
-
Date of Service: November 26, 2024
-
Patient Diagnosis:bph retention of urine
Post Op Day:
Patient Diagnosis:
BPH
elevated psa
urinary retention
ARF
hypospadius
Subjective
-
toleraring diaz
Objective
-
Vital Signs
Temp Pulse Resp BP Pulse Ox
98.0 F 63 18 186/88 96
11/26/24 11:28 11/26/24 11:28 11/26/24 11:28 11/26/24 11:28 11/26/24 11:28
Intake and Output
11/25/24 11/26/24 11/27/24
06:59 06:59 06:59
Intake Total 1120 / 1120 1800 / 1800
Output Total 1750 / 1750 1999
Balance -630 / -630 -200 / -200
Intake:
Oral fluids 420 / 420 700 / 700
IV fluids (Total) 700 / 700 900 / 900
IV piggybacks 200 / 200
Output:
Urine, Diaz 1750 / 1750 1999
Other:
Number of approximated MODERATE 1
amounts of urine
Laboratory Results
11/26/24 11:07
11/26/24 11:07
Review of Systems
-
: Difficulty Voiding
Physical Exam
-
General - well developed, well nourished, no acute distress
Chest - clear bilaterally
Abdomen - soft, non-tender, positive bowel sounds, no CVAT, no incisional pain or distention
Genitalia - normal
Rectal - normal
Skin - warm & dry with no rash
Neuro - AOx3, no motor deficits
Extremities - no clubbing, no cyanosis, no edema
Incision - clean, dry
Dressing - clean, dry, intact
Counseling
-
teach diaz and leg bag care
Care Review
Data Reviewed
Discussed with: Nursing and Family
CT Scan: Image Pers Reviewed
[2024-11-26] MEDS: CITROMA 300 ML PO (13:20)
--- NOTE | 2024-11-26 14:15 | W.PN.NEPH.PH ---
Today's Communication / Plan
-
Okay for discharge from renal standpoint
Assessment/Plan
-
79y M with PMH significant for hypertension and BPH who presents to ED complaining of difficulty urinating and having BM for several days. Decreased urine output over the last 4 days
Mild abdominal distention.
He had a few episodes of N/V several days ago - and has not been eating / drinking since that time.
He was given antibiotics for cough which she is uncertain to which ones
followed by Urology for BPH and he states that TURP has been discussed in the past.
In the ED, patient had Eli catheter placed for initial return of 1000cc of urine.
Renal consult for acute kidney injury creatinine of 9.4 with baseline creatinine 1.26 July 2024.
Likely obstructive
Impression.
Acute kidney injury with creatinine of 9 on admission baseline creatinine 1.3.
Responded to Eli catheter making urine the creatinine improved to 5.3.
BPH history
Hypertension
Plan.
Hold olmesartan
Continue IV fluid
Eli catheter
Urology consult
Creatinine down to 2.4.
From renal standpoint would be okay for discharge.
-
-
Date of Service: November 26, 2024
CC / HPI / ROS
-
Chief Complaint:
Acute kidney injury
History of Present Illness:
Acute kidney injury secondary to obstructive uropathy responded to Eli catheter creatinine decreased from 9 down to 2.4
Review of Systems:
Nonoliguric
Labs
-
Labs:
WBC 13.4 10^3/uL (4.8-10.8) H 11/26/24 11:07
RBC 4.10 10^6/uL (4.70-6.10) L 11/26/24 11:07
Hgb 12.8 g/dL (13.0-18.0) L 11/26/24 11:07
Hct 37.4 % (39.0-52.0) L 11/26/24 11:07
Plt Count 147 10^3/uL (130-400) 11/26/24 11:07
Sodium 142 mmol/L (135-145) 11/26/24 11:07
Potassium 4.4 mmol/L (3.5-5.1) 11/26/24 11:07
Chloride 114 mmol/L (98-107) H 11/26/24 11:07
Carbon Dioxide 25 mmol/L (22-30) 11/26/24 11:07
BUN 55 mg/dl (9-20) H 11/26/24 11:07
Creatinine 2.4 mg/dL (0.7-1.3) H 11/26/24 11:07
eGFR 27.11 11/26/24 11:07
Glucose 128 mg/dl (70-99) H 11/26/24 11:07
Calcium 8.3 mg/dl (8.4-10.2) L 11/26/24 11:07
Phosphorus 5.0 mg/dl (2.5-4.5) H 11/25/24 07:35
Albumin 4.1 g/dl (3.5-5.0) 11/24/24 15:48
Physical Exam
-
Vital Signs:
Vital Signs
Temp Pulse Resp BP Pulse Ox
98.0 F 63 18 186/88 96
11/26/24 11:28 11/26/24 11:28 11/26/24 11:28 11/26/24 11:28 11/26/24 11:28
Respiratory:: Bilateral: CTA
Lung Excursion:: Normal
Abdomen:: Soft
Bowel Sounds:: Normal
Extremity Edema:: None: Bilateral:
Eli Catheter: Yes
[2024-11-26 15:07] VITALS: BP 181/92
[2024-11-26] MEDS: ROCEPHIN 1000 MG IV (15:46)
[2024-11-26] MEDS: STERILE WATER FOR INJECTION 10 ML IV (15:47)
[2024-11-26] MEDS: HEPARIN 5000 UNITS SC (15:47)
[2024-11-26] MEDS: APRESOLINE 10 MG IV (15:47)
[2024-11-26 19:30] VITALS: BP 156/77
[2024-11-26] MEDS: COLACE PO (20:18)
[2024-11-26] MEDS: SENOKOT PO (20:19)
[2024-11-26 23:00] VITALS: BP 153/83
[2024-11-27] MEDS: FLAGYL 500 MG 100 IV ×4 (00:26→23:44)
[2024-11-27] MEDS: HEPARIN 5000 UNITS SC ×4 (00:27→23:44)
[2024-11-27 03:06] VITALS: BP 175/96
[2024-11-27 06:00] VITALS: BMI 27.5
[2024-11-27 07:04] LABS: Hematocrit 35.8 % (39.0-52.0); Hemoglobin 12.1 g/dL (13.0-18.0); Mean Corp Hgb Conc. 33.8 g/dL (33.0-37.0); Mean Corpuscular Volume 91.8 fL (80.0-94.0); Mean Platelet Volume 10.6 fL (7.4-10.4); Platelet Count 149 10^3/uL (130-400); Red Cell Dist. Width 13.4 % (11.5-14.5); White Blood Cell Count 11.9 10^3/uL (4.8-10.8)
[2024-11-27 07:29] LABS: Blood Urea Nitrogen 45 mg/dl (9-20); Calcium 8.4 mg/dl (8.4-10.2); Carbon Dioxide 23 mmol/L (22-30); Chloride 114 mmol/L (98-107); Estimated Creatinine Clearance 37 ml/min; Glucose 107 mg/dl (70-99); Potassium 3.9 mmol/L (3.5-5.1); Sodium 144 mmol/L (135-145); eGFR 38.29
[2024-11-27 07:40] VITALS: BP 179/92
--- NOTE | 2024-11-27 07:59 | W.PN.HOSP.TC ---
Today's Communication/Plan
-
see bold
Assessment / Plan
Assessment / Plan
79y M with PMH significant for hypertension and BPH who presents to ED complaining of difficulty urinating / having BM x several days.
Gen: NAD, AAOx3.
Eyes: EOMI, PERRLA, no scleral icterus.
Neck: supple.
CV: continues to remain RRR, +S1/S2, no m/r/g.
Resp: continues to remain CTAB, no rales, wheezes, or rhonchi.
Abd: +BS, soft, mild LLQ TTP, ND
Skin: No rashes.
Neuro: CN 2-12 intact, non-focal.
Psych: Normal mood and affect.
CT A/P: There is stranding along the splenic flexure/proximal descending colon suspicious for colitis. There is no hydronephrosis or obstructing renal calculus. There is mild circumferential urinary bladder wall thickening which may be sequelae of
chronic indwelling Eli catheter, chronic outlet obstruction, however can be seen with cystitis. Additionally there is nonspecific perinephric edema. Consider correlation with urinalysis to exclude infection. There is bilateral renal atrophy with
numerous hypodense lesions, some of which are not well characterized on this examination and others of which represent cysts. An enhanced CT or MRI for further evaluation may be considered as clinically warranted. Severe prostatomegaly.
Cholelithiasis with a 1.9 cm stone in the gallbladder neck. There is no CT evidence suggestive of acute cholecystitis. Further evaluation with dedicated right upper quadrant ultrasound may be considered as clinically warranted.
Acute Urinary Retention and ALEXANDRA with hyperkalemia due to severe prostamegaly:
-p/w'd with > 1500 cc of retained urine, SCr = 9.4 (baseline = 1.3) and anion gap metabolic acidosis.
-ALEXANDRA / hyperkalemia was due to obstruction.
-Maintain Eli catheter.
-Continue finasteride/tamsulosin
-s/p IVFs
-Uro/renal following
-Cr has improved to 1.8 and renal has cleared the pt for d/c from a renal standpoint
Leukocytosis
Possible Descending Colitis
Constipation
- WBC 33 on admission with left shift. Afebrile and non-toxic appearing.
- CT done in the ED shows possible descending colon inflammation.
- Continue ceftriaxone/metronidazole for now for possible colitis / diverticulitis.
- Bowel regimen for constipation - likely contributing to some degree to urinary issues. Mag citrate given 11/26/24 resulting in multiple BMs
Essential Hypertension:
-Olmesartan stopped with ALEXANDRA
-start Norvasc 5mg daily
-IV hydralazine PRN
FULL/Heparin
Anticipated Discharge: Within 24 hours
Subjective/Interval History
-
Date of Service: November 27, 2024
No new complaints to me. Mentioned L-sided abd pain to Dr. Castro.
Objective Data
-
Labs:
Laboratory Results
11/27/24
06:12
WBC 11.9 H
Hgb 12.1 L
Hct 35.8 L
Plt Count 149
Sodium 144
Potassium 3.9
Chloride 114 H
Carbon Dioxide 23
BUN 45 H
Creatinine 1.8 H
Glucose 107 H
Calcium 8.4
Vital Signs:
Vital Signs
Temp Pulse Resp BP Pulse Ox
98.8 F 67 20 175/96 96
11/27/24 03:06 11/27/24 03:06 11/27/24 03:06 11/27/24 03:06 11/27/24 03:06
I&O
11/26/24 11/27/24 11/28/24
06:59 06:59 06:59
Intake Total 1800 / 1800 1780 / 1780
Output Total 1999 / 1999 2475 / 2475
Balance -200 / -200 -695 / -695
[2024-11-27] MEDS: NORVASC 5 MG PO (08:09)
[2024-11-27] MEDS: FLOMAX 0.4 MG PO (08:10)
[2024-11-27] MEDS: COLACE PO ×2 (08:11→20:55)
[2024-11-27] MEDS: PROSCAR PO (08:12)
--- NOTE | 2024-11-27 10:33 | W.PN.URO.CBU ---
Today's Communication / Plan
-
keep diaz monitor llq abd pain
Assessment / Plan
-
BPH with acute urinary retention and ARF
hypospadius
diaz in place
urine clear
cr declining
CT with no acute findings
continue proscar
will follow check possible colitis
Diagnosis
-
Date of Service: November 27, 2024
-
Patient Diagnosis:
Post Op Day:
Patient Diagnosis:bph retention of urine
Post Op Day:
Patient Diagnosis:
BPH
elevated psa
urinary retention
ARF
hypospadius
Subjective
-
new 24 hours rt lq pain othe rwise asx from gu point of view
Objective
-
Vital Signs
Temp Pulse Resp BP Pulse Ox
98.2 F 64 18 179/92 96
11/27/24 07:40 11/27/24 08:09 11/27/24 07:40 11/27/24 08:09 11/27/24 07:40
Intake and Output
11/26/24 11/27/24 11/28/24
06:59 06:59 06:59
Intake Total 1800 / 1800 1780 / 1780
Output Total 1999 / 2474
Balance -200 / -200 -695 / -695
Intake:
Oral fluids 700 / 700 1680 / 1680
IV fluids (Total) 900 / 900
IV piggybacks 200 / 200 100 / 100
Output:
Urine, Diaz 1999 / 2474
Laboratory Results
11/27/24 06:12
11/27/24 06:12
Review of Systems
-
Abdomen/GI: Abdominal Pain
: Difficulty Voiding
Physical Exam
-
General - well developed, well nourished, no acute distress
Chest - clear bilaterally
Abdomen - soft, mild rebound and rlq -tender, positive bowel sounds, no CVAT,
Genitalia - normal
Rectal - normal
Skin - warm & dry with no rash
Neuro - AOx3, no motor deficits
Extremities - no clubbing, no cyanosis, no edema
Incision - clean, dry
Dressing - clean, dry, intact
Care Review
Data Reviewed
Discussed with: Hospitalist and Nursing
CT Scan: Image Pers Reviewed
[2024-11-27 11:35] VITALS: BP 175/89
--- NOTE | 2024-11-27 12:19 | W.PN.NEPH.PH ---
Today's Communication / Plan
-
AM labs
Assessment/Plan
-
79y M with PMH significant for hypertension and BPH who presents to ED complaining of difficulty urinating and having BM for several days. Decreased urine output over the last 4 days
Mild abdominal distention.
He had a few episodes of N/V several days ago - and has not been eating / drinking since that time.
He was given antibiotics for cough which she is uncertain to which ones
followed by Urology for BPH and he states that TURP has been discussed in the past.
In the ED, patient had Eli catheter placed for initial return of 1000cc of urine.
Renal consult for acute kidney injury creatinine of 9.4 with baseline creatinine 1.26 July 2024.
Likely obstructive
Impression.
Acute kidney injury with creatinine of 9 on admission baseline creatinine 1.3.
Responded to Eli catheter making urine the creatinine improved to 5.3.
BPH history
Hypertension
Plan.
Hold olmesartan
Continue IV fluid
Eli catheter
Urology consult
Creatinine down to 2.4 >1.8
From renal standpoint would be okay for discharge.
-
-
Date of Service: November 27, 2024
CC / HPI / ROS
-
Chief Complaint:
Acute kidney injury
History of Present Illness:
Acute kidney injury secondary to obstructive uropathy responded to Eli catheter creatinine decreased from 9 down to 2.4
Review of Systems:
Nonoliguric
Labs
-
Labs:
WBC 11.9 10^3/uL (4.8-10.8) H 11/27/24 06:12
RBC 3.90 10^6/uL (4.70-6.10) L 11/27/24 06:12
Hgb 12.1 g/dL (13.0-18.0) L 11/27/24 06:12
Hct 35.8 % (39.0-52.0) L 11/27/24 06:12
Plt Count 149 10^3/uL (130-400) 11/27/24 06:12
Sodium 144 mmol/L (135-145) 11/27/24 06:12
Potassium 3.9 mmol/L (3.5-5.1) 11/27/24 06:12
Chloride 114 mmol/L (98-107) H 11/27/24 06:12
Carbon Dioxide 23 mmol/L (22-30) 11/27/24 06:12
BUN 45 mg/dl (9-20) H 11/27/24 06:12
Creatinine 1.8 mg/dL (0.7-1.3) H 11/27/24 06:12
eGFR 38.29 11/27/24 06:12
Glucose 107 mg/dl (70-99) H 11/27/24 06:12
Calcium 8.4 mg/dl (8.4-10.2) 11/27/24 06:12
Phosphorus 5.0 mg/dl (2.5-4.5) H 11/25/24 07:35
Albumin 4.1 g/dl (3.5-5.0) 11/24/24 15:48
Physical Exam
-
Vital Signs:
Vital Signs
Temp Pulse Resp BP Pulse Ox
97.9 F 68 20 175/89 97
11/27/24 11:35 11/27/24 11:35 11/27/24 11:35 11/27/24 11:35 11/27/24 11:35
Respiratory:: Bilateral: CTA
Lung Excursion:: Normal
Abdomen:: Soft
Bowel Sounds:: Normal
Extremity Edema:: None: Bilateral:
Eli Catheter: Yes
[2024-11-27 15:32] VITALS: BP 150/88
[2024-11-27] MEDS: STERILE WATER FOR INJECTION 10 ML IV (16:06)
[2024-11-27] MEDS: ROCEPHIN 1000 MG IV (16:06)
[2024-11-27 19:35] VITALS: BP 161/70
[2024-11-27] MEDS: SENOKOT PO (20:55)
[2024-11-27 23:26] VITALS: BP 156/81
[2024-11-28 03:24] VITALS: BP 158/78
[2024-11-28 06:00] VITALS: BMI 27.4
[2024-11-28 07:54] VITALS: BP 192/96
[2024-11-28] MEDS: FLOMAX 0.4 MG PO (08:03)
[2024-11-28] MEDS: COLACE 100 MG PO (08:03)
[2024-11-28] MEDS: NORVASC 5 MG PO ×2 (08:03→11:21)
[2024-11-28] MEDS: PROSCAR 5 MG PO (08:03)
[2024-11-28] MEDS: HEPARIN 5000 UNITS SC (08:04)
[2024-11-28] MEDS: FLAGYL 500 MG 100 IV (08:06)
[2024-11-28 09:06] LABS: Blood Urea Nitrogen 34 mg/dl (9-20); Calcium 8.3 mg/dl (8.4-10.2); Carbon Dioxide 24 mmol/L (22-30); Chloride 113 mmol/L (98-107); Estimated Creatinine Clearance 44 ml/min; Glucose 103 mg/dl (70-99); Potassium 3.7 mmol/L (3.5-5.1); Sodium 142 mmol/L (135-145); eGFR 47.65
--- NOTE | 2024-11-28 10:55 | W.PN.HOSP.TC ---
Today's Communication/Plan
-
d/c
Assessment / Plan
Assessment / Plan
79y M with PMH significant for hypertension and BPH who presents to ED complaining of difficulty urinating / having BM x several days.
Gen: remains NAD, AAOx3.
Eyes: remains EOMI, PERRLA, no scleral icterus.
Neck: supple.
CV: RRR, +S1/S2, no m/r/g.
Resp: CTAB, no rales, wheezes, or rhonchi.
Abd: +BS, soft, NT, ND
Skin: No rashes.
Neuro: CN 2-12 intact, non-focal.
Psych: Normal mood and affect.
CT A/P: There is stranding along the splenic flexure/proximal descending colon suspicious for colitis. There is no hydronephrosis or obstructing renal calculus. There is mild circumferential urinary bladder wall thickening which may be sequelae of
chronic indwelling Eli catheter, chronic outlet obstruction, however can be seen with cystitis. Additionally there is nonspecific perinephric edema. Consider correlation with urinalysis to exclude infection. There is bilateral renal atrophy with
numerous hypodense lesions, some of which are not well characterized on this examination and others of which represent cysts. An enhanced CT or MRI for further evaluation may be considered as clinically warranted. Severe prostatomegaly.
Cholelithiasis with a 1.9 cm stone in the gallbladder neck. There is no CT evidence suggestive of acute cholecystitis. Further evaluation with dedicated right upper quadrant ultrasound may be considered as clinically warranted.
Acute Urinary Retention and ALEXANDRA with hyperkalemia due to severe prostamegaly:
-p/w'd with > 1500 cc of retained urine, SCr = 9.4 (baseline = 1.3) and anion gap metabolic acidosis.
-ALEXANDRA / hyperkalemia was due to obstruction.
-Maintain Eli catheter.
-Continue finasteride/tamsulosin
-s/p IVFs
-Uro/renal following
-Cr has improved to 1.5 and renal has cleared the pt for d/c from a renal standpoint
Leukocytosis
Possible Descending Colitis
Constipation
- WBC 33 on admission with left shift. Afebrile and non-toxic appearing.
- CT done in the ED showed possible descending colon inflammation.
- was on ceftriaxone/metronidazole for possible colitis / diverticulitis, transition to Levaquin/Flagyl on d/c
- Bowel regimen for constipation - likely contributing to some degree to urinary issues. Mag citrate given 11/26/24 resulting in multiple BMs
Essential Hypertension:
-Olmesartan stopped with ALEXANDRA
-increase Norvasc to 10mg daily and start Hydralazine 25mg TID
-IV hydralazine PRN
FULL/Heparin
Total time spent on d/c = 35 min. This included today's physical exam, progress note, review of laboratory and diagnostic data, preparation of discharge documents and prescriptions, and discussions about the pt's hospital course and discharge plan
with the patient and other anesthesiology medical doctor involved in the patient's care.
Anticipated Discharge: Today
Subjective/Interval History
-
Date of Service: November 28, 2024
Objective Data
-
Labs:
Laboratory Results
11/28/24
07:24
Sodium 142
Potassium 3.7
Chloride 113 H
Carbon Dioxide 24
BUN 34 H
Creatinine 1.5 H
Glucose 103 H
Calcium 8.3 L
Vital Signs:
Vital Signs
Temp Pulse Resp BP Pulse Ox
97.8 F 62 18 192/96 96
11/28/24 07:54 11/28/24 07:54 11/28/24 07:54 11/28/24 07:54 11/28/24 07:54
I&O
11/27/24 11/28/24 11/29/24
06:59 06:59 06:59
Intake Total 1780 / 1780 1200 / 1200
Output Total 2475 / 2475 1550 / 1550
Balance -695 / -695 -350 / -350
--- NOTE | 2024-11-28 10:59 | W.PN.URO.CBU ---
Today's Communication / Plan
-
home when ok byt hodpitsist
Assessment / Plan
-
BPH with acute urinary retention and ARF
hypospadius
diaz in place
urine clear
cr declining
CT with no acute findings
continue proscar home when ok by hospitalist psa 30 ill obtain outpatient mri
Diagnosis
-
Date of Service: November 28, 2024
-
Patient Diagnosis:
Post Op Day:
Patient Diagnosis:
Post Op Day:
Patient Diagnosis:bph retention of urine
Post Op Day:
Patient Diagnosis:
BPH
elevated psa
urinary retention
ARF
hypospadius
Subjective
-
feels baseline
Objective
-
Vital Signs
Temp Pulse Resp BP Pulse Ox
97.8 F 62 18 192/96 96
11/28/24 07:54 11/28/24 07:54 11/28/24 07:54 11/28/24 07:54 11/28/24 07:54
Intake and Output
11/27/24 11/28/24 11/29/24
06:59 06:59 06:59
Intake Total 1780 / 1780 1200 / 1200
Output Total 5 / 5 1550 / 1550
Balance -695 / -695 -350 / -350
Intake:
Oral fluids 1680 / 1680 1200 / 1200
IV piggybacks 100 / 100
Output:
Urine, Diaz 2475 / 2475 1550 / 1550
Laboratory Results
11/27/24 06:12
11/28/24 07:24
Review of Systems
-
: Difficulty Voiding
Physical Exam
-
General - well developed, well nourished, no acute distress
Chest - clear bilaterally
Abdomen - soft, non-tender, positive bowel sounds, no CVAT, no incisional pain or distention
Genitalia - normal
Rectal - normal
Skin - warm & dry with no rash
Neuro - AOx3, no motor deficits
Extremities - no clubbing, no cyanosis, no edema
Incision - clean, dry
Dressing - clean, dry, intact
Care Review
Data Reviewed
Discussed with: Nursing
[2024-11-28 11:19] VITALS: BP 165/93
[2024-11-28] MEDS: APRESOLINE 25 MG PO (11:21)
--- NOTE | 2024-11-28 11:22 | CM ---
Reviewed the chart notes. Patient to be discharged to home with diaz. VN referral sent via [facility]. continues to be available to patient/family and is monitoring medical plan for needs at discharge.
Plan: Discharge to home with VN services.
--- NOTE | 2024-11-28 11:57 | CM ---
Reviewed the chart notes and spoke with the patient at the bedside. IMM reviewed. Patient for discharge to home today with VN services. Patient's brother will be providing transportation home.
Plan: Discharge to home with VN services.
--- NOTE | 2024-11-28 11:58 | W.PN.NEPH.PH ---
Today's Communication / Plan
-
benicar
Assessment/Plan
-
79y M with PMH significant for hypertension and BPH who presents to ED complaining of difficulty urinating and having BM for several days. Decreased urine output over the last 4 days
Mild abdominal distention.
He had a few episodes of N/V several days ago - and has not been eating / drinking since that time.
He was given antibiotics for cough which she is uncertain to which ones
followed by Urology for BPH and he states that TURP has been discussed in the past.
In the ED, patient had Diaz catheter placed for initial return of 1000cc of urine.
Renal consult for acute kidney injury creatinine of 9.4 with baseline creatinine 1.26 July 2024.
Likely obstructive
Impression.
Acute kidney injury with creatinine of 9 on admission baseline creatinine 1.3.
Responded to Diaz catheter making urine the creatinine improved to 5.3.
BPH history
Hypertension
Plan.
restart olmesartan
Diaz catheter per urology
follow BMP
may not need hydralazine/amlodipine
has WC HTN
-
-
Date of Service: November 28, 2024
CC / HPI / ROS
-
Chief Complaint:
Acute kidney injury
History of Present Illness:
Acute kidney injury secondary to obstructive uropathy
diaz in place, nonoliguric
ALEXANDRA/Cr down to 1.5
BP high
Review of Systems:
no CP/SOB
Nonoliguric
Labs
-
Labs:
WBC 11.9 10^3/uL (4.8-10.8) H 11/27/24 06:12
RBC 3.90 10^6/uL (4.70-6.10) L 11/27/24 06:12
Hgb 12.1 g/dL (13.0-18.0) L 11/27/24 06:12
Hct 35.8 % (39.0-52.0) L 11/27/24 06:12
Plt Count 149 10^3/uL (130-400) 11/27/24 06:12
Sodium 142 mmol/L (135-145) 11/28/24 07:24
Potassium 3.7 mmol/L (3.5-5.1) 11/28/24 07:24
Chloride 113 mmol/L (98-107) H 11/28/24 07:24
Carbon Dioxide 24 mmol/L (22-30) 11/28/24 07:24
BUN 34 mg/dl (9-20) H 11/28/24 07:24
Creatinine 1.5 mg/dL (0.7-1.3) H 11/28/24 07:24
eGFR 47.65 11/28/24 07:24
Glucose 103 mg/dl (70-99) H 11/28/24 07:24
Calcium 8.3 mg/dl (8.4-10.2) L 11/28/24 07:24
Phosphorus 5.0 mg/dl (2.5-4.5) H 11/25/24 07:35
Albumin 4.1 g/dl (3.5-5.0) 11/24/24 15:48
Physical Exam
-
Vital Signs:
Vital Signs
Temp Pulse Resp BP Pulse Ox
97.8 F 76 18 165/93 96
11/28/24 07:54 11/28/24 11:19 11/28/24 07:54 11/28/24 11:19 11/28/24 07:54
Cardiovascular:: Regular rate and rhythm
Respiratory:: Bilateral: CTA
Lung Excursion:: Normal
Abdomen:: Nontender and Soft
Bowel Sounds:: Normal
Extremity Edema:: None: Bilateral:
--- NOTE | 2024-11-28 13:28 | PTCARENOTE ---
diaz education provided to patient. patient able to demonstrate teach back. Patient states verbal understanding. patient requesting to leave with standard diaz bag. leg bag provided to patient to take home.
--- NOTE | 2024-11-28 13:34 | W.DCSUMMARY ---
Discharge Summary
Discharge Data
Date of Admission: 11/24/24
Date of Discharge: 11/28/24
-
Pending Results: No
Hospital Course
Primary diagnoses:
Acute Urinary Retention and acute kidney injury with hyperkalemia due to severe prostatomegaly
Possible descending colitis
Secondary diagnoses:
Leukocytosis
Essential hypertension
Consultants:
Nephrology
Urology
Imaging:
CT A/P: There is stranding along the splenic flexure/proximal descending colon suspicious for colitis. There is no hydronephrosis or obstructing renal calculus. There is mild circumferential urinary bladder wall thickening which may be sequelae of
chronic indwelling Eli catheter, chronic outlet obstruction, however can be seen with cystitis. Additionally there is nonspecific perinephric edema. Consider correlation with urinalysis to exclude infection. There is bilateral renal atrophy with
numerous hypodense lesions, some of which are not well characterized on this examination and others of which represent cysts. An enhanced CT or MRI for further evaluation may be considered as clinically warranted. Severe prostatomegaly.
Cholelithiasis with a 1.9 cm stone in the gallbladder neck. There is no CT evidence suggestive of acute cholecystitis. Further evaluation with dedicated right upper quadrant ultrasound may be considered as clinically warranted.
79-year-old male presented with a chief complaint of abdominal pain and difficulty urinating as outlined in the H&P done on admission. Hospital course per problem was:
Acute Urinary Retention and ALEXANDRA with hyperkalemia due to severe prostatomegaly: The patient presented with > 1500 cc of retained urine, SCr = 9.4 (baseline = 1.3) and anion gap metabolic acidosis. The patient's acute kidney injury and hyperkalemia
was due to bladder outlet obstruction due to severe prostatic megaly. Eli catheter was placed. He was continued on finasteride/tamsulosin. He received IV fluids. His Cr improved to 1.5 and and he was discharged in medically stable condition
with a Eli catheter in place.
Possible descending colitis: With associated constipation. White count on admission was 33 with a left shift. He was afebrile nontoxic-appearing. CT scan above. Patient was on Rocephin and Flagyl. His white count improved to 11.9. He was
transitioned to Levaquin and Flagyl on discharge.
Discharge Plan
-
Patient Disposition: Home (Routine Discharge)
Discharge Diagnosis/Procedures: Acute Urinary Retention and acute kidney injury with hyperkalemia due to severe prostamegaly
Condition: Good
Diet: Low Cholesterol and 2 Gram Sodium
Activity: As tolerated
Driving Restrictions: As prior to admission
Referrals:
Jimbo Castro MD [Active] - (call dr castro [phone] and schedule appt will need mri call office to schedule ty enriqueta emily urban also in a different sappt and need change 3 weeks [ about december 22])
Jagjit Hernandez MD [Family Provider] - in less than 1 week
Prescriptions:
New
sennosides [Molly-eleazar] 8.6 mg Tablet
17.2 mg PO HS Qty: 0 0RF
polyethylene glycol 3350 17 gram Powder In Packet
17 g PO DAILY Qty: 0 0RF
hydralazine 25 mg Tablet
25 mg PO TID Qty: 90 0RF
tamsulosin 0.4 mg Capsule
0.4 mg PO DAILY Qty: 30 0RF
amlodipine 10 mg Tablet
10 mg PO DAILY Qty: 30 0RF
docusate sodium 100 mg Capsule
100 mg PO BID Qty: 0 0RF
levofloxacin 250 mg tablet
250 mg PO DAILY Qty: 5 0RF
metronidazole 500 mg tablet
500 mg PO TID Qty: 15 0RF
Continued
therapeutic multivitamin Tablet
1 tab PO DAILY
bisacodyl [Dulcolax (bisacodyl)] 10 mg Suppository
10 mg SD DAILYPRN PRN (Reason: constipation)
ondansetron 4 mg Tablet,Disintegrating
4 mg PO [id number] PRN (Reason: nausea)
finasteride 5 mg Tablet
5 mg PO DAILY
Discontinued
olmesartan 20 mg Tablet
20 mg PO DAILY
Discharge Orders:
Discharge Patient (As Directed); Ordered 11/28/24
Ordered By: Jay Clay
Discharge Date and Time
Print Language: ALBANIAN
--- NOTE | 2024-11-28 13:47 | VNURNOTE ---
Home Health Liaison spoke patient's spouse Korin to discuss [facility] nurse/therapy, visits, schedule and homebound status. She is agreeable and understands that visits at home will be 2-3 x per week to assess and teach medical and diaz management.
[facility] contact information provided. She is aware that [facility] will contact them for start of care in 1-2 days after discharge from . [facility] referral completed in [facility].
== END 2024-11-28 13:41 | disposition home health service (06) | DRG 683 ==
LOC: 4 WEST ACU 21:13
PROVIDERS: Physician Assistant Medical; Specialist; ADMITTING PHYSICIAN Hospitalist; ATTENDING PHYSICIAN Internal Medicine; CONSULT PHYSICIAN Specialist; EMERGENCY PHYSICIAN Student in an Organized Health Care Education/Training Program; FAMILY PHYSICIAN Internal Medicine Geriatric Medicine
DX: N17.9 Acute kidney failure, unspecified (principal); E87.20 Acidosis, unspecified; E87.5 Hyperkalemia; N40.1 Benign prostatic hyperplasia with lower urinary tract symptoms; D72.829 Elevated white blood cell count, unspecified; I10 Essential (primary) hypertension; N32.0 Bladder-neck obstruction; K52.9 Noninfective gastroenteritis and colitis, unspecified; K59.00 Constipation, unspecified; Q54.9 Hypospadias, unspecified; Z88.0 Allergy status to penicillin
CPT/HCPCS: 51702; 74176; 80048; 80053; 81003; 81015; 83605; 83690; 83735; 84100; 84153; 85025; 85027; 87040; 96361; 96374; 96375; 99291

== ENCOUNTER 2024-12-06 00:55 | Observation (INO) | payer MEDICARE, OTHER, SELFPAY ==
[2024-12-05 19:14] VITALS: BP 110/81
[2024-12-05 19:47] LABS: % Basophils 0.2 % (0-2); % Eosinophils 0.5 % (0-6); % Immature Granulocytes 0.5 % (0-0.5); % Lymphocytes 4.5 % (20.5-51.1); % Monocytes 4.8 % (1.7-9.3); % Neutrophils 89.5 % (42.2-75.2); Absolute Basophils 0.1 10^3/uL (0-0.2); Absolute Eosinophils 0.1 10^3/uL (0-0.7); Absolute Immature Granulocytes 0.1 10^3/uL (0-0.05); Absolute Lymphocytes 0.9 10^3/uL (1.2-3.4); Hematocrit 39.1 % (39.0-52.0); Hemoglobin 13.2 g/dL (13.0-18.0); Mean Corp Hgb Conc. 33.8 g/dL (33.0-37.0); Mean Corpuscular Hgb 30.8 pg (27.0-31.0); Mean Corpuscular Volume 91.4 fL (80.0-94.0); Mean Platelet Volume 9.9 fL (7.4-10.4); Nucleated Red Blood Cells % 0 % (-); Platelet Count 318 10^3/uL (130-400); Red Blood Cell Count 4.28 10^6/uL (4.70-6.10); Red Cell Dist. Width 13.2 % (11.5-14.5); White Blood Cell Count 20.1 10^3/uL (4.8-10.8)
[2024-12-05 19:49] LABS: Lactic Acid 1.4 mmol/L (0.7-2.0)
[2024-12-05 19:51] LABS: ALT (SGPT) 24 U/L (0-50); AST (SGOT) 22 U/L (17-59); Albumin 3.7 g/dl (3.5-5.0); Alkaline Phosphatase 72 U/L (38-126); Blood Urea Nitrogen 25 mg/dl (9-20); Calcium 8.9 mg/dl (8.4-10.2); Carbon Dioxide 26 mmol/L (22-30); Chloride 101 mmol/L (98-107); Glucose 136 mg/dl (70-99); Sodium 138 mmol/L (135-145); Total Bilirubin 0.8 mg/dl (0.2-1.3); Total Protein 6.8 g/dl (6.3-8.2); eGFR 47.65
[2024-12-05 20:06] VITALS: BP 108/63
--- NOTE | 2024-12-05 20:21 | ED.GENMED ---
History of Present Illness
General
Chief Complaint: Dehydration Symptoms
Source: patient
Exam Limitations: none
Time Seen by Provider: 12/05/24 20:02
Nursing documentation reviewed up to this point in time: agreed with
History of Present Illness
History of Present Illness:
Patient is a 79-year-old male with history hypertension presenting to the emergency department via EMS with concerns of weakness and dehydration. Patient states he woke up today feeling 'unwell 'and then today after physical therapy felt so weak he
was having trouble moving his lower legs. He does report nausea and diarrhea today. His visiting nurse thought his urine seemed darker than usual. He is concerned that he is very dehydrated.
Patient denies any known fever or chills. He denies any chest pain, shortness of breath, or cough. He denies any abdominal pain. Patient denies any headache, numbness/tingling in lower extremities.
Of note�patient was recently admitted at for 4 nights, recently discharged for 11/28/24 with acute renal failure secondary to acute urinary retention from prostatomegaly. He was also treated with antibiotics for colitis. He states he completed
biotics today although diarrhea has been persistent.
Past History
Past History
ED Past Medical History: HTN
ED Past Surgical History: None
Social History
Tobacco: Non-smoker
Alcohol: None
Drug: None
Personal:
Living: with family
Employment: Retired
Review of Systems
Review of Systems
Allergies reviewed?: Yes
All Other Systems: ROS reviewed and negative except as documented in HPI and ROS
Phy Exam
Physical Exam
Physical Exam:
Vitals: Patient's vital signs are stable. Afebrile
General: Patient is well appearing, no acute distress. Nontoxic appearing
Skin: Warm and dry, no rashes or lesions
Head: Normocephalic, atraumatic
Eyes: Sclera nonicteric. EOMs intact. No nystagmus.
Throat: Protecting airway
Neck: Normal ROM, no cervical spine tenderness, no meningismus
Cardiac: Regular rate and rhythm, no murmurs.
Pulm: Normal respiratory effort, no wheezes, rales, rhonchi heard on exam.
Abdomen: Abdomen soft. Diffuse abdominal tenderness, worse in lower abdomen. No rebound tenderness or guarding. Eli catheter in place draining dark yellow urine
Extremities: No evidence of cyanosis or edema. Palpable DP pulses bilaterally. Strength grossly intact in bilateral upper and lower extremities.
Neuro: AAOx3. Grossly intact.
Psychiatric: Normal affect.
Course
Orders/Labs/Results
Orders:
Orders
12/05/24 19:26
Complete Blood Count/With Diff Urgent
Comprehensive Metabolic Panel Urgent
Lactate Level [Lactic Acid] Q4H
Blood Culture Urgent
ROLANDO Source: Blood/Venous
Specimen Description:
12/05/24 20:16
Electrocardiogram (*1) Urgent
Reason for Study: Fatigue / Weakness
EKG- Treatment ONCE
0.9% Sodium Chloride 1000 ml [Nss] 1,000 ml IV BOLUS
Ondansetron Injectable [Zofran] 4 mg IV NOW STA
12/05/24 20:37
Abdomen/Pelvis wo Contrast CT [CT Abd/pelvis Wo Iv Cont] Urgent
Comment:
Reason For Exam: Lower abdominal pain, recently treated colitis
12/05/24 21:00
COVID-19 Antigen Urgent
Source: Nasal Swab
Urinalysis Reflex To Culture Urgent
Date Specimen was Collected: 12/05/24
Time Specimen was Collected: 20:52
Urine Microscopic Reflex Cult Urgent
Influenza A+B Rapid Molecular Urgent
ROLANDO Source: Nasal Swab
Specimen Description:
Urine Culture Urgent
ROLANDO Source: U
Specimen Description:
Date Specimen was Collected: 12/05/24
Time Specimen was Collected: 20:52
12/05/24 21:39
Ondansetron Injectable [Zofran] 4 mg .ROUTE .STK-MED ONE
12/05/24 21:41
Ondansetron Injectable [Zofran] 4 mg IV NOW STA
12/05/24 22:45
Bladder Scan- Treatment ONCE
12/05/24 23:13
Eli Placement- Treatment ONCE
Reason for insertion: Acute Retention
12/05/24 23:38
Urinalysis Reflex To Culture Urgent
Date Specimen was Collected: 12/05/24
Time Specimen was Collected: 23:38
12/05/24 23:42
STOOL [C difficile Antigen & Toxins] Urgent
ROLANDO Source: Feces/Stool
Specimen Description:
Stool Culture Urgent
ROLANDO Source: Feces/Stool
Specimen Description:
12/05/24 23:57
Piperacillin/Tazo 3.375 Gram [Zosyn] 3.375 gram in 50 ml IV NOW
12/06/24 00:00
Urine Microscopic Reflex Cult Urgent
Urine Culture Urgent
ROLANDO Source: U
Specimen Description:
Date Specimen was Collected: 12/05/24
Time Specimen was Collected: 23:38
12/06/24 00:45
Admit/Transfer Patient As Directed
Co-Sign Provider:
Level of Care: Observation services
Assign to:: Medical/Surgical
Physician / Group: hospitalist
Diagnosis: acute urinary retention
Code Status As Directed
Resuscitation Status: Full Code
PRN Pain Medication Management As Directed
May give lesser potent ordered pain med per pt: Yes
preference::
Protocol:: Medication orders for pain may be administered in a
manner that supports deferring to patient preference
when the pt is:
- Requesting an ordered lesser potent pain medication.
Least to most potent pain medications are defined
as: acetaminophen < NSAID < tramadol < opioids
(morphine, oxycodone, hydromorphone).
- Requesting a lesser dose of the same medication IF
ORDERED.
- Requesting a less intrusive route of administration
if both routes are prescribed by the provider (PO <
IV).
12/06/24 00:59
Acetaminophen [Tylenol] 650 mg PO Q4HPRN PRN
Bisacodyl [Dulcolax] 10 mg RECTAL DAILYPRN PRN
Bisacodyl [Dulcolax] 10 mg RECTAL [id number] PRN
Docusate W/Senna [Senokot-S] 1 tablet PO BIDPRN PRN
Ondansetron Injectable [Zofran] 4 mg IV Q6HPRN PRN
12/06/24 00:59
Activity As Directed
Activity Level: With Assistance
Eli Catheter [Catheter- Indwelling] As Directed
Reason for insertion: Chronic Eli on Admit
Vital Signs As Directed
Frequency: Per unit guidelines
DX Deep Vein Thrombosis Video Routine
12/06/24 Breakfast
Regular
At Your Request: Limited, Picture Engraver Required
Basic Metabolic Panel IN AM
Complete Blood Count/No Diff IN AM
Procalcitonin IN AM
PCT Algorithmm Indication: Respiratory
CefTRIAXone [Rocephin] 1,000 mg IV Q24H
12/06/24 08:00
Amlodipine [Norvasc] 10 mg PO DAILY
Finasteride [Proscar] 5 mg PO DAILY
Heparin 5,000 units SC Q8
HydrALAZINE [Apresoline] 25 mg PO TID
MetroNIDAZOLE [Flagyl] 500 mg PO BID
Tamsulosin [Flomax] 0.4 mg PO DAILY
Abnormal Lab Results
12/05/24 12/05/24 12/06/24
19:26 21:00 00:00
WBC 20.1 H 10^3/uL
(4.8-10.8)
RBC 4.28 L 10^6/uL
(4.70-6.10)
Abs Immat Gran (auto) 0.1 H 10^3/uL
(0-0.05)
Absolute Neuts (auto) 18.0 H 10^3/uL
(1.4-6.5)
Absolute Lymphs (auto) 0.9 L 10^3/uL
(1.2-3.4)
Absolute Monos (auto) 1.0 H 10^3/uL
(0.1-0.6)
Neutrophils % 89.5 H %
(42.2-75.2)
Lymphocytes % 4.5 L %
(20.5-51.1)
BUN 25 H mg/dl
(9-20)
Creatinine 1.5 H mg/dL
(0.7-1.3)
Glucose 136 H mg/dl
(70-99)
Ur Occult Blood Reflex 4+ A 4+ A
(Negative) (Negative)
Leukocyte Esterase Rfl 1+ A 2+ A
(Negative) (Negative)
Urine RBC 3-6 A /HPF 16-20 A /HPF
(0-2) (0-2)
Urine WBC (Reflex) 16-20 A /HPF
(0-5)
Urine Bacteria (Reflex) Few A Moderate A
(Negative) (Negative)
Urine Albumin (Reflex) 2+ A 2+ A
(Neg - Trace) (Neg - Trace)
12/05/24 19:26
12/05/24 19:26
Vital Signs
Initial and Last Documented VS:
Initial Vital Signs
Temp Pulse Resp BP Pulse Ox
98.2 F 79 16 110/81 97
12/05/24 19:14 12/05/24 19:14 12/05/24 19:14 12/05/24 19:14 12/05/24 19:14
Last Documented Vital Signs
Temp Pulse Resp BP Pulse Ox
98.8 F 81 23 134/71 94
12/06/24 00:43 12/06/24 00:30 12/05/24 23:00 12/06/24 00:00 12/06/24 00:15
MDM/Problems Addressed
Differential Diagnosis Includes:
Not limited to: Viral illness, UTI, intra-abdominal abscess, acute dehydration, electrolyte abnormality, sepsis, etc.
MDM/Problems Addressed:
79-year-old male with indwelling Eli catheter presenting with generalized weakness recently discharged from hospital 1 week ago after for a stay for acute renal failure secondary to urinary retention and colitis. No fevers, chest pain, shortness
of breath, cough at home. Patient is still having persistent diarrhea. Vitals and exam as above. Basic labs were initiated in triage prior to my assessment significant for leukocytosis of 20.1 with left shift. Chemistry shows creatinine of 1.5
which appears to be improving since discharge. Lactic acid is normal. Differential broad�although given generalized weakness along with significant leukocytosis�concern for possible underlying infectious process. Patient does have indwelling
Eli catheter�will obtain UA. Will check viral swabs. Given recent colitis and diffuse abdominal pain�will obtain CT scan abdomen/pelvis without contrast given renal insufficiency. Will give IV fluids, Zofran.
Update: Viral swabs negative. Urine without evidence of clear-cut UTI however on initial read of CT scan, bladder appears quite enlarged. I did obtain a bladder scan which shows acute urinary retention (700mL). Eli was swapped with significant
drainage of yellow urine. Will resend this urine sample for further evaluation. Official read of CT scan pending. Will send stool cultures, C. difficile to rule out infectious diarrhea with recent hospitalization and antibiotic use.
Update: CT scan shows new opacity in left lower lobe concerning for possible pneumonia. Fortunately�prior colitis appears improved. While patient has no URI symptoms�given recent hospitalization now with findings of pneumonia along with
significant leukocytosis will initiate antibiotic therapy. Patient will require admission to hospital for IV antibiotics, further management given generalized weakness. Patient excepted to hospitalist service in stable condition.
Chronic conditions affecting care:
Hypertension, chronic indwelling Eli catheter
Acute Exacerbation and/or Progression of Chronic Illness:
Acute urinary retention
*Radiology
Radiology exam reviewed: radiology read reviewed (Noncontrast CT abdomen/pelvis left lower lobe opacity concerning for pneumonia, colitis improved)
*Pulse Oximetry
Patient hypoxic: no
*EKG
Interpreted by ED Provider?: Yes
EKG Intrepretation Date: 12/06/23
Interpretation: abnormal
Comparison EKG: changes noted
Heart Rate: 75
Rate: normal
Rhythm: sinus
Archer: normal axis
Interval: normal QT interval
QRS Pattern: normal QRS
Ischemia: non-specific ST changes
*Filter Press Operator Interpretation
Rate: Filter Press Operator- N/A
*Critical Care Note
Total Time (30-74mins, 75-104mins- exclusive of procedures): Not Applicable
Data Reviewed
Review of Other/Old Records Reveals: Discharge Summary (Discharge summary from 11/28/2024-following stay for acute urinary retention, colitis, discharged with levofloxacin/metronidazole)
Source: previous hospital records
Patient Management
Discussion with other providers: Hospitalist
Escalation/DeEscalation of care consider admission/obs:
Admit indicated
ED Attending Note
-
Portions of this chart may have been created with voice recognition software.� Occasional wrong word or��sound alike� substitutions may have occurred due to the inherent limitations of voice recognition software.
Discharge Plan
Departure
Patient Disposition: Admit
Date of Disposition: 12/05/24
Time of Disposition: 23:49
Presentation/result/management discussed w/ accepting MD/DO: Hospitalist
Discharge Problem:
Pneumonia, Acute urinary retention, Generalized weakness
Interventions
Interventions:
*Risk Screen - Suicide Last Done: 12/05/24 21:02
*General Assessment Last Done: 12/05/24 21:02
*Neglect/Abuse Screening Last Done: 12/05/24 21:02
*ED- Fall Risk Assessment Last Done: 12/05/24 21:02
*ED COVID-19 Vaccine History Last Done: 12/05/24 21:02
ED- Cardiac Assessment Last Done: 12/06/24 01:16
ED-Male Genitourinary Assessment Last Done: 12/05/24 21:06
ED- Neurological Assessment Last Done: 12/06/24 01:16
ED- Pulmonary Assessment Last Done: 12/06/24 01:16
[2024-12-05] MEDS: NSS 1000 IV (20:50)
[2024-12-05] MEDS: ZOFRAN 4 MG IV ×2 (20:50→21:41)
[2024-12-05 21:03] VITALS: BP 138/83
[2024-12-05 21:11] LABS: Urine Albumin 2+ (Neg - Trace); Urine Bilirubin Negative (Negative); Urine Character Clear (Clear); Urine Color Yellow; Urine Glucose Negative (Negative); Urine Ketone Negative (Negative); Urine Leukocyte 1+ (Negative); Urine Nitrite Negative (Negative); Urine Occult Blood 4+ (Negative); Urine Specific Gravity 1.025 (<1.030); Urine Urobilinogen Negative (Neg - 1+)
[2024-12-05 21:19] LABS: Urine Squamous Cell 0-2 /LPF (Few); Urine Uric Acid Crystals Present
[2024-12-05 21:20] LABS: Urine Bacteria Few (Negative)
[2024-12-05 21:28] LABS: COVID-19 Antigen Negative (Negative)
[2024-12-05 22:00] VITALS: BP 143/81
[2024-12-05 23:00] VITALS: BP 150/96
[2024-12-06] VITALS (7 sets, daily range): BP systolic 111–154; BP diastolic 67–84; PULSE 75; O2SAT 94; BMI 28.2
[2024-12-06 00:16] LABS: Urine Albumin 2+ (Neg - Trace); Urine Bilirubin Negative (Negative); Urine Character Slightly Cloudy (Clear); Urine Color Yellow; Urine Glucose Negative (Negative); Urine Ketone Negative (Negative); Urine Leukocyte 2+ (Negative); Urine Nitrite Negative (Negative); Urine Occult Blood 4+ (Negative); Urine Urobilinogen Negative (Neg - 1+)
--- NOTE | 2024-12-06 00:20 | HPS.HSE ---
Family Physician
-
Family Physician: Jagjit Hernandez
Chief Complaint
-
Weakness
History of Present Illness
This is a 79-year-old with past medical history significant for hypertension, BPH, recently admitted with urinary retention and CVA ALEXANDRA with a peak creatinine of 9 and discharge of the placement of indwelling urinary catheter and treatment for
possible colitis presenting to the emergency department with weakness and found to have mild retention status post urinary cath change.
Patient reports he has been doing well at home and had a visiting nurse and PT today. DVT not evaluated he stated that and changed to bag with good urine output. Patient reportedly underwent decent amount of physical therapy at home and felt he
did well with it. After the physical therapy he suddenly developed abdominal bloating and pain with nausea and vomiting. He tried to hydrate himself by drinking water but he vomited it up. He reported that there was decreased output from the
urinary catheter. He denied having any accident. He denied yanking the card. Due to his abdominal discomfort and vomiting as well as inability of spouse to manage with him he decided to call 911 and come to the emergency department.
Patient denied any fevers or chills. He denies having any cough. He denied seeing any hematuria.
In the Emergency Department the patient was afebrile. Blood pressure was 150/90 with a pulse of 87 was satting 94% on room air. He had leukocytosis to 20.1, and platelets were normal. Electrolytes were normal. BUN and creatinine continue to
improve with a creatinine of 1.5. Glucose was normal. COVID test was negative. Flu test negative.
CT scan of the abdomen pelvis showed some mild persistent retention with bladder distention around the urinary catheter, mild prominence of bilateral collecting systems without fixed obstruction. Also incidentally found a left lower lobe
consolidation.
Medical History
Past Medical History
Past Medical History: Reports Other
Additional Past Medical History:
Hypertension
BPH
Past Surgical History: Reports Other
Additional Past Surgical History:
Herniorrhaphy
Cataracts
Rectal Polypectomy
Social History
Tobacco: Non-smoker
Alcohol: Occasional
Drug: None
Family History
Family History: Not pertinent
Allergies / Home Medications
Allergies reflects when Allergies were last updated in [facility].
Home Medications with original date entered in [facility]
Allergy/Medication List:
Allergies
Allergy/AdvReac Type Severity Reaction Status Date / Time
amoxicillin [Amoxicillin] Allergy 'hyper' Verified 12/05/24 19:17
Home Medications
bisacodyl 10 mg rectal suppository (Dulcolax (bisacodyl)) 10 mg DC DAILYPRN PRN constipation 11/24/24
finasteride 5 mg tablet 5 mg PO DAILY Urinary Issue 11/24/24
ondansetron 4 mg disintegrating tablet 4 mg PO [id number] PRN nausea 11/24/24
therapeutic multivitamin 1 tab PO DAILY Supplement 11/24/24
amlodipine 10 mg tablet 10 mg PO DAILY #30 tabs 11/28/24
hydralazine 25 mg tablet 25 mg PO TID #90 tabs 11/28/24
tamsulosin 0.4 mg capsule 0.4 mg PO DAILY #30 caps 11/28/24
Review of Systems
-
Constitutional: Reports No Symptoms
EENT: Reports No Symptoms
Respiratory: Reports No Symptoms
Cardiac: Reports No Symptoms
Abdomen/GI: Reports Abdominal Pain and Vomiting
: Reports Dysuria, Difficulty Voiding and Eli
Musculoskeletal: Reports No Symptoms
Skin: Reports No Symptoms
Neurological: Reports No Symptoms
Endocrine: Reports No Symptoms
Hematologic/Lymphatic: Reports No Symptoms
Psych: Reports No Symptoms
Physical Exam
Vital Signs
Vital Signs
Temp Pulse Resp BP Pulse Ox
98.2 F 87 23 150/96 94
12/05/24 19:14 12/05/24 23:30 12/05/24 23:00 12/05/24 23:00 12/05/24 23:30
Physical Exam
General: Well Developed, Well Nourished, Comfortable and Conversant
HEENT: NormoCephalic, Anicteric, Moist mucous membranes, Atraumatic and PERRLA
Respiratory: Clear
Cardiac: S1/S2 and Regular Rhythm
Breast: Deferred by me
GI: Soft, Non Tender, Non Distended and Normal Bowel Sounds
Rectal: Deferred by Provider
Genito-urinary: Eli
Musculoskeletal: No Clubbing, No Cyanosis, Edema, Left Lower Extremity (1+) and Edema, Right Lower Extremity (1+)
Skin: Warm
Neuro: AO x 3 and Nonfocal/grossly intact
Hematologic/Lymphatic: No Lymphadenopathy
Psych: Calm
Laboratory Results
-
12/05/24 19:26
12/05/24 19:26
Laboratory Results
Lactic Acid Cancelled 12/05/24 23:30
Total Bilirubin 0.8 mg/dl (0.2-1.3) 12/05/24 19:26
AST 22 U/L (17-59) 12/05/24 19:26
ALT 24 U/L (0-50) 12/05/24 19:26
Alkaline Phosphatase 72 U/L (38-126) 12/05/24 19:26
Data Reviewed
-
CT Scan: Report Reviewed by me
Lab Data: Labs Reviewed by me
Old Records: Reviewed
Impression/Plan
-
IMPRESSION:
Loss of 9-year-old with history of urinary retention status post placement of Eli catheter in the setting of ALEXANDRA with improvement in the renal function comes in with episode of acute retention despite Eli placement likely secondary to Eli
malfunction. The CT scan of the abdomen pelvis confirms likely recent obstruction due to Eli malfunction. His renal function is improving compared to prior. UA is equivocal with WBCs leukocyte esterase and few bacteria. He is afebrile,
hemodynamically stable and in no acute distress. Incidental finding of a left lower lobe consolidation on CT scan but patient has no respiratory symptoms. Urinary catheter was exchanged in the emergency department and has good urine flow at this
time.
PLAN:
Urinary retention -urinary retention secondary to urinary catheter malfunction. 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
-Admit to MedSurg observation
- Monitor I's and O's
-Hold serial examination
-Continue tamsulosin and finasteride
-Urine culture sent
Left lower lobe consolidation -incidental finding of left lower lobe consolidation on CT scan. There is leukocytosis but patient is without respiratory symptoms. Cannot absolutely rule out a urinary tract infection and cannot absolutely rule out
early pneumonia which may be secondary to the vomiting episode that he had
-Monitoring oxygen intermittently
-Monitor fever profile
-Check procalcitonin
-Continue ceftriaxone/flagyl for now, if procalcitonin is negative can DC Zosyn
Hypertension
Continue amlodipine
DVT prophylaxis-heparin subcu for now
CODE STATUS -full code
[2024-12-06 00:35] LABS: Urine Bacteria Moderate (Negative); Urine Red Blood Cell 16-20 /HPF (0-2); Urine White Cell 16-20 /HPF (0-5)
[2024-12-06] MEDS: ZOSYN 50 IV (00:40)
[2024-12-06] MEDS: ROCEPHIN 1000 MG IV (05:38)
[2024-12-06] MEDS: STERILE WATER FOR INJECTION 10 ML IV (05:39)
[2024-12-06 06:19] LABS: Blood Urea Nitrogen 24 mg/dl (9-20); Calcium 8.2 mg/dl (8.4-10.2); Carbon Dioxide 25 mmol/L (22-30); Chloride 106 mmol/L (98-107); Estimated Creatinine Clearance 41 ml/min; Glucose 110 mg/dl (70-99); Potassium 3.9 mmol/L (3.5-5.1); Sodium 138 mmol/L (135-145)
[2024-12-06 06:27] LABS: Hematocrit 31.8 % (39.0-52.0); Hemoglobin 10.8 g/dL (13.0-18.0); Mean Corpuscular Hgb 31.4 pg (27.0-31.0); Mean Corpuscular Volume 92.4 fL (80.0-94.0); Mean Platelet Volume 9.8 fL (7.4-10.4); Platelet Count 246 10^3/uL (130-400); Procalcitonin 0.09 ng/ml (0.0-0.25); Red Blood Cell Count 3.44 10^6/uL (4.70-6.10); Red Cell Dist. Width 13.2 % (11.5-14.5); White Blood Cell Count 16.9 10^3/uL (4.8-10.8)
[2024-12-06] MEDS: NORVASC 10 MG PO (08:05)
[2024-12-06] MEDS: FLOMAX 0.4 MG PO (08:05)
[2024-12-06] MEDS: APRESOLINE 25 MG PO (08:06)
[2024-12-06] MEDS: FLAGYL 500 MG PO (08:06)
[2024-12-06] MEDS: HEPARIN 5000 UNITS SC (08:06)
--- NOTE | 2024-12-06 08:14 | VNURNOTE ---
Chart reviewed. Patient is current with [facility] nursing. Will continue to follow hospital course and DC plans.
--- NOTE | 2024-12-06 09:22 | EDRN ---
Patient taken to room 1142-1 on stretcher by blow mold technician.
--- NOTE | 2024-12-06 10:23 | CM ---
CM met with pt bedside
Pt resides with his spouse in a [place] with 5 small RA
Pt typically indep with ambulation and personal care without a AD
He was admitted to [facility] 11/24-11/28 and now current with [facility] and utilizing [facility]
PCP- Robby Hernandez
Rx- Moreno Jay
PT eval with VN recs
Referral made to [facility] for JOHN
Pt notes he likely will be discharged today
He has made arrangements for his brother to transport home
[facility] verbally completed- copy provided
[facility]charge Disposition[facility], brother transport
--- NOTE | 2024-12-06 11:08 | W.PN.UPDATE ---
Update Note
Progress Note Update
Nonbillable note
Patient seen in ER and resting comfortably. Not voicing any complaints of abdominal pain/nausea/vomiting
No diarrhea episodes overnight
1. Severe prostatomegaly, urinary retention, indwelling Eli catheter malfunction -Eli catheter was changed. Discussed with primary urologist of consult who recommended to maintain Eli catheter and will plan for follow-up in office. Patient
to be provided with normal saline flushes to be done periodically.
2. Recovered colitis - Patient to have some leukocytosis likely reactive, was given Rocephin and Flagyl in ER for question of possible not improving colitis although patient denies of having frequent diarrhea and last stool in afternoon was pasty.
Will discontinue further antibiotics at discharge.
3. Nausea/vomiting -likely due to Eli catheter malfunction and obstructive uropathy related. Resolved rapidly post exchange of Eli catheter.
Patient to be evaluated by physical therapy
Likely discharge in later in the day unless have recurrence of nausea vomiting or any other medical issues arises.
VN care ordered per discussion with embedded case manager
--- NOTE | 2024-12-06 14:58 | W.DCSUMMARY ---
Discharge Summary
Discharge Data
Date of Admission: 12/06/24
Date of Discharge: 12/06/24
-
Pending Results: No
Hospital Course
Discharging Physician : Dr Schuyler Stockton
Disposition : Home with home care
Primary care physician : Dr. Jagjit Hernandez
Principal Discharge diagnosis :
Eli catheter malfunction
Left lower lobe atelectasis
Chronic Discharge diagnosis :
Benign prostatic hyperplasia with significant prostatomegaly
Essential hypertension
Chronic kidney disease stage IIIA
Hospital Course :
Patient is a 79-year-old male with above-mentioned past medical history who came to ER after having new onset of abdominal pain/nausea/vomiting. Patient has been recently discharged from [facility] after treatment of colitis and has just
finished course of antibiotic day before presentation to ER. Patient has severe prostatomegaly and urinary retention from it requiring Eli catheter. Patient in process with urology office to get eventual TURP procedure done. On day of ER visit
patient had sudden onset of abdominal symptoms with noticing decreased urinary output from Eli catheter. Symptoms were rapidly progressing and patient came to ER primarily for this reason. CT abdomen pelvis done in ER showing bladder distention
with urinary catheter being in appropriate position. There was concern of catheter being clogged and was exchanged by ER physician. Patient had good urine output afterward.
Patient incidentally on CT abdomen pelvis was noted to having lower lobe infiltrates although patient was not voicing any complaints of productive cough/fever. Patient was maintained on empiric antibiotics in the hospital. Discharge patient is
given short course of oral Keflex therapy.
Patient is planned to follow-up with urology in the office post discharge. Patient provided with normal saline flushes to use if have repeat clogging of Eli catheter.
Important imaging findings :
None
Procedure findings :
None
Discharge Plan
-
Patient Disposition: Home with Home Care
Discharge Diagnosis/Procedures: Eli malfunction, nausea/vomiting
Condition: Fair
Diet: Regular
Activity: As tolerated
Driving Restrictions: As prior to admission
Bathing Restrictions: OK to Shower
Other Services: VN and PT
Activity Restrictions/Additional Instructions:
Please flush Eli with 10ml Normal saline every 8 hrs as needed
Referrals:
Jimbo Castro MD [Active] -
Jagjit Hernandez MD [Family Provider] - in one week
Prescriptions:
New
cephalexin 500 mg capsule
500 mg PO Q8H 3 Days Qty: 9 0RF
sodium chloride 0.9 % (flush) Syringe
10 ml intra-catheter Q8H PRN (Reason: Eli catheter clogging) Qty: 100 0RF
Continued
therapeutic multivitamin Tablet
1 tab PO DAILY
bisacodyl [Dulcolax (bisacodyl)] 10 mg Suppository
10 mg WI DAILYPRN PRN (Reason: constipation)
ondansetron 4 mg Tablet,Disintegrating
4 mg PO [id number] PRN (Reason: nausea)
finasteride 5 mg Tablet
5 mg PO DAILY
Rx Instructions:
Patient states he takes a 'shaving on one or 0.5mg'
hydralazine 25 mg Tablet
25 mg PO TID Qty: 90 0RF
tamsulosin 0.4 mg Capsule
0.4 mg PO DAILY Qty: 30 0RF
amlodipine 10 mg Tablet
10 mg PO DAILY Qty: 30 0RF
Discharge Orders:
Discharge Patient (As Directed); Ordered 12/06/24
Ordered By: Schuyler Stockton
Discharge Date and Time
Print Language: SERBIAN
== END 2024-12-06 16:43 | disposition home health service (06) ==
LOC: 1 ACUTE 00:55
PROVIDERS: Emergency Medicine; Physician Assistant; ADMITTING PHYSICIAN Internal Medicine; ATTENDING PHYSICIAN Hospitalist; EMERGENCY PHYSICIAN Emergency Medicine; FAMILY PHYSICIAN Internal Medicine Geriatric Medicine
DX: T83.091A Other mechanical complication of indwelling urethral catheter, initial encounter (principal); I12.9 Hypertensive chronic kidney disease with stage 1 through stage 4 chronic kidney disease, or unspecified chronic kidney disease; N18.31 Chronic kidney disease, stage 3a; E86.0 Dehydration; N40.1 Benign prostatic hyperplasia with lower urinary tract symptoms; R33.8 Other retention of urine; J98.11 Atelectasis; Y84.6 Urinary catheterization as the cause of abnormal reaction of the patient, or of later complication, without mention of misadventure at the time of the procedure; Z11.52 Encounter for screening for COVID-19; Z79.899 Other long term (current) drug therapy; Z86.73 Personal history of transient ischemic attack (TIA), and cerebral infarction without residual deficits
CPT/HCPCS: 51702; 51798; 74176; 80048; 80053; 81003; 81015; 83605; 84145; 85025; 85027; 87040; 87086; 87502; 87811; 93005; 96361; 96365; 96375; 96376; 97162; 99285; G0378

== ENCOUNTER → 2024-12-07 16:10 | Outpatient (REF) | payer MEDICARE, OTHER, SELFPAY | LOC: MRI 3T 16:10 | PROVIDERS: ATTENDING PHYSICIAN Specialist; FAMILY PHYSICIAN Internal Medicine Geriatric Medicine | DX: R97.20 Elevated prostate specific antigen [PSA] (principal); N13.30 Unspecified hydronephrosis; N40.1 Benign prostatic hyperplasia with lower urinary tract symptoms | CPT/HCPCS: 72197 ==

== ENCOUNTER 2024-12-09 01:40 | Observation (INO) | payer MEDICARE, OTHER, SELFPAY ==
[2024-12-08 18:21] VITALS: BP 101/76
[2024-12-08 18:41] LABS: % Basophils 0.5 % (0-2); % Eosinophils 0.8 % (0-6); % Immature Granulocytes 0.5 % (0-0.5); % Lymphocytes 6.1 % (20.5-51.1); % Monocytes 6.4 % (1.7-9.3); % Neutrophils 85.7 % (42.2-75.2); Absolute Basophils 0.1 10^3/uL (0-0.2); Absolute Eosinophils 0.1 10^3/uL (0-0.7); Absolute Immature Granulocytes 0.1 10^3/uL (0-0.05); Absolute Neutrophils 13.3 10^3/uL (1.4-6.5); Hematocrit 36.8 % (39.0-52.0); Hemoglobin 12.3 g/dL (13.0-18.0); Mean Corp Hgb Conc. 33.4 g/dL (33.0-37.0); Mean Corpuscular Hgb 30.5 pg (27.0-31.0); Mean Corpuscular Volume 91.3 fL (80.0-94.0); Mean Platelet Volume 9.6 fL (7.4-10.4); Nucleated Red Blood Cells % 0 % (-); Platelet Count 269 10^3/uL (130-400); Red Blood Cell Count 4.03 10^6/uL (4.70-6.10); Red Cell Dist. Width 12.9 % (11.5-14.5); White Blood Cell Count 15.6 10^3/uL (4.8-10.8)
[2024-12-08 19:01] LABS: ALT (SGPT) 21 U/L (0-50); AST (SGOT) 23 U/L (17-59); Albumin 3.5 g/dl (3.5-5.0); Alkaline Phosphatase 60 U/L (38-126); Blood Urea Nitrogen 22 mg/dl (9-20); Calcium 8.7 mg/dl (8.4-10.2); Carbon Dioxide 25 mmol/L (22-30); Chloride 102 mmol/L (98-107); Glucose 125 mg/dl (70-99); Sodium 139 mmol/L (135-145); Total Bilirubin 0.9 mg/dl (0.2-1.3); Total Protein 6.6 g/dl (6.3-8.2); eGFR > 60.00
[2024-12-08 21:54] VITALS: BMI 28.2
[2024-12-08 22:12] LABS: Urine Albumin 3+ (Neg - Trace); Urine Bilirubin Negative (Negative); Urine Character Clear (Clear); Urine Color Yellow; Urine Glucose Negative (Negative); Urine Ketone Negative (Negative); Urine Leukocyte 1+ (Negative); Urine Nitrite Negative (Negative); Urine Occult Blood 4+ (Negative); Urine Specific Gravity 1.015 (<1.030); Urine Urobilinogen Negative (Neg - 1+)
[2024-12-08 22:20] LABS: Urine Squamous Cell 0-2 /LPF (Few)
[2024-12-08 22:21] LABS: Urine Mucus Few; Urine Uric Acid Crystals Present
[2024-12-08 22:22] LABS: Urine Red Blood Cell 16-20 /HPF (0-2)
[2024-12-08 22:23] LABS: Urine Bacteria Moderate (Negative)
[2024-12-08 22:44] VITALS: BP 140/89
--- NOTE | 2024-12-08 23:09 | ED.GENMED ---
History of Present Illness
General
Chief Complaint: Weakness
Source: patient and family
Exam Limitations: none
Time Seen by Provider: 12/08/24 21:19
Nursing documentation reviewed up to this point in time: agreed with
History of Present Illness
History of Present Illness:
Patient to ED with complaint of increasing weakness. States he was discharged 2 days ago after admission for weakness and pneumonia. 1 week before that he was admitted here for ARFdue to urinary retention. He states he continues to become weaker
and now is unable to transfer without max assist. ALso complains of pain and swelling to LLE. States he noticed swelling 3 days ago. Brought to ED by family for eval. Denies fever/chills, n/v/d. No cp/pressure SOB.
Past History
Past History
ED Past Medical History: HTN
ED Past Surgical History: None
Social History
Tobacco: Non-smoker
Alcohol: None
Drug: None
Personal:
Living: with family
Employment: Retired
Review of Systems
Review of Systems
Allergies reviewed?: Yes
All Other Systems: ROS reviewed and negative except as documented in HPI and ROS
Constitutional: Reports no symptoms
EENT: Reports no symptoms
Respiratory: Reports no symptoms
Cardiac: Reports no symptoms
ABD/GI: Reports no symptoms
Musculoskeletal: Reports other (Pain and swelling to LLE)
Skin: Reports no symptoms
Neurological: Reports weakness
Psychiatric: Reports no symptoms
Phy Exam
General Physical Exam
General Presentation: mild distress
General age: appears stated age
General Skin: warm and dry
General Habitus: normal
General Mental: alert
Cardiovascular Exam
Cardiovascular Exam: regular rate/rhythm
Pulmonary Exam
Pulmonary Exam: lungs clear and no respiratory distress
Gastrointestinal Exam
Gastrointestinal Exam: normal bowel sounds and non tender
Musculoskeletal Exam
Musculoskeletal Exam: neuro vasc intact and other (Pain and swelling to LLE. No erythema)
Skin Exam
Skin Exam: normal color, warm/dry and no rash
Psychiatric Exam
Psychiatric Exam: normal mood/affect
Course
Orders/Labs/Results
Orders:
Orders
12/08/24 18:33
Complete Blood Count/With Diff Urgent
Comprehensive Metabolic Panel Urgent
12/08/24 21:39
US Periph Venous LOWER Ext LT Urgent
Comment:
Reason For Exam: pain and swelling
12/08/24 21:56
Urinalysis Reflex To Culture Urgent
Date Specimen was Collected: 12/08/24
Time Specimen was Collected: 21:54
Urine Microscopic Reflex Cult Urgent
Urine Culture Urgent
ROLANDO Source: U
Specimen Description:
Date Specimen was Collected: 12/08/24
Time Specimen was Collected: 21:54
12/08/24 23:00
Flush (0.9% Sodium Chloride) [Flush (Nss)] See Dose Instructions IV PER PROTOCOL
12/08/24 23:17
Apixaban [Eliquis] 10 mg PO NOW STA
12/09/24 00:23
Admit/Transfer Patient As Directed
Co-Sign Provider:
Level of Care: Observation services
Assign to:: Medical/Surgical
Physician / Group: hospitalist
Diagnosis: left lower extremity dvt
PRN Pain Medication Management As Directed
May give lesser potent ordered pain med per pt: Yes
preference::
Protocol:: Medication orders for pain may be administered in a
manner that supports deferring to patient preference
when the pt is:
- Requesting an ordered lesser potent pain medication.
Least to most potent pain medications are defined
as: acetaminophen < NSAID < tramadol < opioids
(morphine, oxycodone, hydromorphone).
- Requesting a lesser dose of the same medication IF
ORDERED.
- Requesting a less intrusive route of administration
if both routes are prescribed by the provider (PO <
IV).
12/09/24 00:24
Code Status As Directed
Resuscitation Status: Full Code
12/09/24 01:44
Acetaminophen [Tylenol] 650 mg PO Q4HPRN PRN
Bisacodyl [Dulcolax] 10 mg RECTAL [id number] PRN
Docusate W/Senna [Senokot-S] 1 tablet PO BIDPRN PRN
Ondansetron Injectable [Zofran] 4 mg IV Q6HPRN PRN
Polyethylene Glycol Powder [Miralax] 17 grams PO DAILYPRN PRN
12/09/24 01:44
VTE Contraindication Routine
VTE Mechanical Device Contraindication: Medical Contraindication
Pharmocologic Contraindication: Medical Contraindication
Activity As Directed
Activity Level: With Assistance
Vital Signs As Directed
Frequency: Per unit guidelines
12/09/24 Breakfast
Regular
At Your Request: Full Participation
Does patient need a safe tray?: No
12/09/24 08:00
Amlodipine [Norvasc] 10 mg PO DAILY
Apixaban [Eliquis] 10 mg PO BID
Cephalexin Monohydrate [Keflex] 500 mg PO Q8
Multivitamin [Theragran] 1 tablet PO DAILY
Olmesartan Medoxomil [Benicar] 20 mg PO DAILY
Tamsulosin [Flomax] 0.4 mg PO DAILY
12/09/24 08:15
Basic Metabolic Panel IN AM
Complete Blood Count/No Diff IN AM
Abnormal Lab Results
12/08/24 12/08/24
18:33 21:56
WBC 15.6 H 10^3/uL
(4.8-10.8)
RBC 4.03 L 10^6/uL
(4.70-6.10)
Hgb 12.3 L g/dL
(13.0-18.0)
Hct 36.8 L %
(39.0-52.0)
Abs Immat Gran (auto) 0.1 H 10^3/uL
(0-0.05)
Absolute Neuts (auto) 13.3 H 10^3/uL
(1.4-6.5)
Absolute Lymphs (auto) 1.0 L 10^3/uL
(1.2-3.4)
Absolute Monos (auto) 1.0 H 10^3/uL
(0.1-0.6)
Neutrophils % 85.7 H %
(42.2-75.2)
Lymphocytes % 6.1 L %
(20.5-51.1)
BUN 22 H mg/dl
(9-20)
Glucose 125 H mg/dl
(70-99)
Ur Occult Blood Reflex 4+ A
(Negative)
Leukocyte Esterase Rfl 1+ A
(Negative)
Urine RBC 16-20 A /HPF
(0-2)
Urine Bacteria (Reflex) Moderate A
(Negative)
Urine Albumin (Reflex) 3+ A
(Neg - Trace)
12/08/24 18:33
12/08/24 18:33
Vital Signs
Initial and Last Documented VS:
Initial Vital Signs
Temp Pulse Resp BP Pulse Ox
99.0 F 82 18 101/76 96
12/08/24 18:21 12/08/24 18:21 12/08/24 18:21 12/08/24 18:21 12/08/24 18:21
Last Documented Vital Signs
Temp Pulse Resp BP Pulse Ox
100.9 F H 76 20 130/69 97
12/10/24 15:00 12/10/24 15:00 12/10/24 15:00 12/10/24 15:00 12/10/24 15:00
*Radiology
Radiology exam reviewed: radiology read reviewed
*Pulse Oximetry
Patient hypoxic: no
*Critical Care Note
Total Time (30-74mins, 75-104mins- exclusive of procedures): Not Applicable
Update Note
Update Note:
Patient to ED with complaint of generalized weaknss. Patient has been admitted 2 times in the past month and reports weakness is worsening;. Unable to ambulate or transfer without maxi assist. states that his weakness became an issue when he
was taken off the olmesartan and placed on hydralazine. Patient and spouse want to stop hydralazine. Will admit to hospitalist for his worsening weakness. Also complains of worsening pain to LLE DVT study pos for DVT. Eliquis started in dept.
He denies any CP/prssure, SOB. PUlse ox 98% RA
ED Attending Note
-
Portions of this chart may have been created with voice recognition software.� Occasional wrong word or��sound alike� substitutions may have occurred due to the inherent limitations of voice recognition software.
Discharge Plan
Departure
Patient Disposition: Admit
Date of Disposition: 12/08/24
Time of Disposition: 23:18
Presentation/result/management discussed w/ accepting MD/DO: Hospitalist
Patient with high blood pressure during this ER visit?: No
Condition: Good
Covid-19: Not Applicable
Discharge Problem:
Generalized weakness, DVT of lower extremity (deep venous thrombosis)
Interventions
Interventions:
*Risk Screen - Suicide Last Done: 12/08/24 21:54
*General Assessment Last Done: 12/08/24 21:54
*Neglect/Abuse Screening Last Done: 12/08/24 21:54
*ED COVID-19 Vaccine History Last Done: 12/08/24 21:54
*Nursing Disposition Last Done: 12/09/24 01:26
ED- Cardiac Assessment Last Done: 12/08/24 21:54
ED- Neurological Assessment Last Done: 12/08/24 21:54
ED- Pulmonary Assessment Last Done: 12/08/24 21:54
Discharge Date and Time
Discharge Date/Time: 12/09/24 01:26
[2024-12-08] MEDS: ELIQUIS 10 MG PO (23:26)
--- NOTE | 2024-12-09 00:15 | HPS.HSE ---
Family Physician
-
Family Physician: Jagjit Hernandez
Chief Complaint
-
Left lower extremity swelling, weakness
History of Present Illness
This is a 79-year-old with past medical history significant for hypertension, BPH, recently admitted with urinary retention and CVA ALEXANDRA with a peak creatinine of 9 and discharge of the placement of indwelling urinary catheter and treatment for
possible colitis, returns to the emergency department recently with urinary retention secondary to urinary catheter malfunction status post exchange of urinary cath and continuation of cephalexin for UTI who now presents again to the emergency
department for a tough time with left lower extremity swelling.
He is unable to tell me exactly the onset of the swelling but the end of the day recently. There is no associated pain numbness or tingling. He denies any chest pain. He denies any shortness of breath. He denies feeling dizzy or lightheaded.
Denies any focal weakness. Reported to have generalized weakness per ED. No recurrent urinary retention with clear draining Eli with some sediments.
In the emergency department he was afebrile, blood pressure was 140/89 with a pulse of 80 satting 99% on room air. He had an ultrasound of the lower extremities which shows a left lower extremity DVT which was occlusive. UA with microscopic
hematuria, some bacteria but no active UTI.
Hemoglobin was unchanged from prior. White count was reduced to 15.6. Electrolytes BUN/creatinine were stable.
Medical History
Past Medical History
Past Medical History: Reports Other
Additional Past Medical History:
Hypertension
BPH
Past Surgical History: Reports Other
Additional Past Surgical History:
Herniorrhaphy
Cataracts
Rectal Polypectomy
Social History
Tobacco: Non-smoker
Alcohol: Occasional
Drug: None
Family History
Family History: Not pertinent
Allergies / Home Medications
Allergies reflects when Allergies were last updated in [facility].
Home Medications with original date entered in [facility]
Allergy/Medication List:
Allergies
Allergy/AdvReac Type Severity Reaction Status Date / Time
amoxicillin [Amoxicillin] Allergy 'hyper' Verified 12/08/24 18:20
Home Medications
therapeutic multivitamin 1 tab PO DAILY Supplement 11/24/24
amlodipine 10 mg tablet 10 mg PO DAILY #30 tabs 11/28/24
tamsulosin 0.4 mg capsule 0.4 mg PO DAILY #30 caps 11/28/24
cephalexin 500 mg capsule 500 mg PO Q8H 3 days #9 caps 12/06/24
olmesartan 20 mg tablet 20 mg PO DAILY 12/08/24
Review of Systems
-
Constitutional: Reports No Symptoms
EENT: Reports No Symptoms
Respiratory: Reports No Symptoms
Cardiac: Reports No Symptoms
Abdomen/GI: Reports No Symptoms
: Reports Eli
Musculoskeletal: Reports No Symptoms
Skin: Reports No Symptoms
Neurological: Reports No Symptoms
Endocrine: Reports No Symptoms
Hematologic/Lymphatic: Reports No Symptoms
Psych: Reports No Symptoms
Physical Exam
Vital Signs
Vital Signs
Temp Pulse Resp BP Pulse Ox
99.0 F 80 16 140/89 98
12/08/24 18:21 12/08/24 22:44 12/08/24 22:44 12/08/24 22:44 12/08/24 22:44
Physical Exam
General: Well Developed, Well Nourished, Comfortable and Conversant
HEENT: NormoCephalic, Anicteric, Moist mucous membranes, Atraumatic and PERRLA
Respiratory: Clear
Cardiac: S1/S2 and Regular Rhythm
Breast: Deferred by me
GI: Soft, Non Tender, Non Distended and Normal Bowel Sounds
Rectal: Deferred by Provider
Genito-urinary: Eli
Musculoskeletal: No Clubbing, No Cyanosis and Edema, Left Lower Extremity (1+)
Skin: Warm
Neuro: AO x 3 and Nonfocal/grossly intact
Hematologic/Lymphatic: No Lymphadenopathy
Psych: Calm
Laboratory Results
-
12/08/24 18:33
12/08/24 18:33
Laboratory Results
Total Bilirubin 0.9 mg/dl (0.2-1.3) 12/08/24 18:33
AST 23 U/L (17-59) 12/08/24 18:33
ALT 21 U/L (0-50) 12/08/24 18:33
Alkaline Phosphatase 60 U/L (38-126) 12/08/24 18:33
Data Reviewed
-
Ultrasound: Report Reviewed by me
Lab Data: Labs Reviewed by me
Old Records: Reviewed
Impression/Plan
-
IMPRESSION:
79-year-old with history of BPH and recent urinary retention requiring indwelling catheter and is currently pending. By Dr. Castro presents to the emergency department with left lower extremity swelling. He is found to have a left lower
extremity DVT which is occlusive. No Karl's and he is hemodynamically stable and in no acute distress. There are no pulmonary symptoms.
UA is consistent with chronic indwelling catheter and no evidence of acute urinary tract infection. Mild weakness but no focal deficits.
Suspect DVT secondary to recurrent hospitalizations application.
PLAN:
Left lower extremity DVT -occlusive thrombosis fairly extensive from the common femoral to the posterior tibial vein. Suspect provoked by recent hospital admissions. Complicated by pending TURP for BPH
- admit to med/surg observation
- continue eliquis 10mg bid x 7 days, then 5 bid x 3 months
- we should alert Dr. Castro as he has an appointment on Thursday to prepare for TURP
- monitor for bleeding.
- complete his cephalexin (1 more day)
- continue tamsulosin, amlodipine and olmesartan
Code status - Full code
[2024-12-09 01:46] VITALS: BP 164/87
[2024-12-09 01:49] VITALS: BMI 27.7
--- NOTE | 2024-12-09 02:37 | PTCARENOTE ---
Pt transferred to [facility]. AAO x3. pt pulled over to bed. No c/o pain upon admission. Safety measures in place, call ribera within reach, pt able to make needs known.
[2024-12-09 07:46] VITALS: BP 169/90
--- NOTE | 2024-12-09 08:31 | VNURNOTE ---
Chart reviewed. [place] [facility]. Will continue to follow hospital course and DC plans.
[2024-12-09 08:47] LABS: Hematocrit 34.3 % (39.0-52.0); Hemoglobin 11.6 g/dL (13.0-18.0); Mean Corp Hgb Conc. 33.8 g/dL (33.0-37.0); Mean Corpuscular Hgb 30.5 pg (27.0-31.0); Mean Corpuscular Volume 90.3 fL (80.0-94.0); Mean Platelet Volume 10.1 fL (7.4-10.4); Platelet Count 258 10^3/uL (130-400); Red Cell Dist. Width 12.9 % (11.5-14.5); White Blood Cell Count 11.9 10^3/uL (4.8-10.8)
[2024-12-09 09:13] LABS: Blood Urea Nitrogen 21 mg/dl (9-20); Calcium 8.8 mg/dl (8.4-10.2); Carbon Dioxide 28 mmol/L (22-30); Chloride 103 mmol/L (98-107); Estimated Creatinine Clearance 55 ml/min; Glucose 111 mg/dl (70-99); Potassium 3.8 mmol/L (3.5-5.1); Sodium 140 mmol/L (135-145); eGFR > 60.00
[2024-12-09] MEDS: BENICAR 20 MG PO (09:37)
[2024-12-09] MEDS: ELIQUIS 10 MG PO ×2 (09:38→19:35)
[2024-12-09] MEDS: THERAGRAN 1 TABLET PO (09:38)
[2024-12-09] MEDS: KEFLEX 500 MG PO ×3 (09:38→23:08)
[2024-12-09] MEDS: FLOMAX 0.4 MG PO (09:38)
--- NOTE | 2024-12-09 10:52 | CM ---
Addendum entered by Lizzette Abel 12/09/24 15:13:
Patient seen bedside, tearful, expresses concern regarding discharge home. CM discussed therapy has been ordered, will evaluate once PT/OT work with patient, patient would be agreeable to go to SNF.
Original Note:
CM reviewed chart, patient seen bedside, initial assessment completed. Patient resides with his in a ranch style home, five steps to enter. Patient reports using a walker at home as of the last two weeks. Patient is current with [facility], denies
SNF. Patient confirms PCP Dr. Hernandez, pharmacy [facility], confirms prescription coverage. Consult received for [facility]ova check of Eliquis, 5mg PO BID. Per pharmacist, with prescription coverage- 60 tablets $439.00, without coverage,
$730.00. Patient reports he able to afford this, coupon provided as well.
[facility] form provided, refused to sign, placed in chart. CM will continue to follow for all discharge planning needs.
Plan; home with , IVÁN
--- NOTE | 2024-12-09 13:42 | W.PN.UPDATE ---
Update Note
Progress Note Update
Nonbillable note
1. Left leg DVT -provoked from weakness limited mobility likely. Some swelling and discomfort in the leg. Lower extremity venous Doppler reviewed. Patient started on Eliquis and will be continued.
2. Essential hypertension -patient/spouse emphatically concerned about patient getting amlodipine and causing his weakness. Likely not the cause. Patient/family declined to be maintained on the medication. Will continue olmesartan for now.
Clearly patient is hypertensive at this stage and will require further medication in my opinion. Monitor on as needed IV hydralazine for systolic blood pressure greater than 160 for night. Will have repeat discussion tomorrow regarding blood
pressure regimen.
[2024-12-09 15:00] VITALS: BP 144/85
[2024-12-09 16:07] VITALS: BP 144/85; PULSE 79; O2SAT 96
[2024-12-09 23:27] VITALS: BP 119/68
[2024-12-10 00:30] VITALS: BP 125/78
[2024-12-10 07:00] VITALS: BP 142/83
[2024-12-10 07:38] LABS: Hematocrit 29.8 % (39.0-52.0); Hemoglobin 10.2 g/dL (13.0-18.0); Mean Corp Hgb Conc. 34.2 g/dL (33.0-37.0); Mean Corpuscular Hgb 30.9 pg (27.0-31.0); Mean Corpuscular Volume 90.3 fL (80.0-94.0); Mean Platelet Volume 9.9 fL (7.4-10.4); Platelet Count 262 10^3/uL (130-400); Red Cell Dist. Width 12.8 % (11.5-14.5); White Blood Cell Count 12.8 10^3/uL (4.8-10.8)
[2024-12-10] MEDS: BENICAR 20 MG PO (08:12)
[2024-12-10] MEDS: THERAGRAN 1 TABLET PO (08:13)
[2024-12-10] MEDS: KEFLEX 500 MG PO ×2 (08:13→16:03)
[2024-12-10] MEDS: ELIQUIS 10 MG PO ×2 (08:13→20:14)
[2024-12-10] MEDS: FLOMAX 0.4 MG PO (08:14)
[2024-12-10 08:32] LABS: Blood Urea Nitrogen 24 mg/dl (9-20); Calcium 8.6 mg/dl (8.4-10.2); Carbon Dioxide 27 mmol/L (22-30); Chloride 104 mmol/L (98-107); Estimated Creatinine Clearance 47 ml/min; Glucose 117 mg/dl (70-99); Potassium 4.1 mmol/L (3.5-5.1); Sodium 136 mmol/L (135-145); eGFR 51.77
--- NOTE | 2024-12-10 11:03 | CM ---
Explained SNF recommendation to patient and ; patient/ agreeable; site preferences are [facility], [facility], and [facility].
Referral sent via [facility]
Plan: discharge to SNF pending bed availability
[2024-12-10 11:23] VITALS: BP 137/73; PULSE 73; O2SAT 96
--- NOTE | 2024-12-10 13:48 | W.PN.HOSP.TC ---
Addendum entered and electronically signed by Schuyler Stockton MD 12/10/24 16:15:
Patient family has opted for patient to be discharged to custodial facility rehab.
Case management referral sent
Likely not to happen today, will cancel discharge orders for now.
Original Note:
Today's Communication/Plan
-
d/c home
Assessment / Plan
Assessment / Plan
1. Left leg DVT -provoked from weakness limited mobility likely. Some swelling and discomfort in the leg. Lower extremity venous Doppler reviewed. Patient started on Eliquis and will be continued.
2. Essential hypertension -patient/spouse emphatically concerned about patient getting amlodipine and causing his weakness. Likely not the cause. Patient/family declined to be maintained on the medication. Will continue olmesartan for now.
Clearly patient is hypertensive at this stage and will require further medication in my opinion. BP remains controlled on the current regimen for now, will need to f/u with family physician for further discussion.
3. Sev BPH/prostatomegaly/indwelling Eli catheter -maintained on Flomax. Patient is planned to follow-up with urology in office for eventual TURP
Full code
More than 30 minutes spent in discharge including
Final examination of the patient
Summarizing hospital stay
Instructions for continuing care to all relevant caregivers
Preparation of discharge records, prescriptions, and referral forms
Total time spent (in minutes): 38 mins
Anticipated Discharge: Today
Subjective/Interval History
-
Date of Service: December 10, 2024
Resting comfortably in bed
Denies any problems overnight
Objective Data
-
Labs:
Laboratory Results
12/10/24
07:17
WBC 12.8 H
Hgb 10.2 L
Hct 29.8 L
Plt Count 262
Sodium 136
Potassium 4.1
Chloride 104
Carbon Dioxide 27
BUN 24 H
Creatinine 1.4 H
Glucose 117 H
Calcium 8.6
Vital Signs:
Vital Signs
Temp Pulse Resp BP Pulse Ox
99.3 F 76 24 142/83 95
12/10/24 07:00 12/10/24 07:00 12/10/24 07:00 12/10/24 07:00 12/10/24 07:00
I&O
12/09/24 12/10/24 12/11/24
06:59 06:59 06:59
Intake Total 480 / 480 1440 / 1440
Output Total 400 / 400 1050 / 1050
Balance 80 / 80 390 / 390
Review of Systems
-
Respiratory: Reports No Symptoms
Cardiac: Reports No Symptoms
Abdomen/GI: Reports No Symptoms
Physical Exam
-
General: No Apparent Distress and Comfortable
HEENT: Negative Oxygen
Respiratory: Clear to Auscultation
Cardiac: Regular Rhythm and S1/S2; Negative Murmur or Rub
GI: Soft, Nontender, Nondistended and Normal Bowel Sounds
Musculoskeletal: Edema, Left Lower Extrem
Neuro: Awake, Alert, Oriented, No Motor Deficits and Nonfocal/Grossly Intact
Psych: Calm
[2024-12-10 15:00] VITALS: BP 130/69
[2024-12-10] MEDS: TYLENOL 650 MG PO (16:02)
[2024-12-10 23:03] VITALS: BP 126/73
[2024-12-11] MEDS: KEFLEX 500 MG PO ×4 (00:08→23:30)
[2024-12-11 06:20] LABS: Hemoglobin 10.8 g/dL (13.0-18.0); Mean Corp Hgb Conc. 33.8 g/dL (33.0-37.0); Mean Corpuscular Hgb 30.6 pg (27.0-31.0); Mean Corpuscular Volume 90.7 fL (80.0-94.0); Mean Platelet Volume 9.8 fL (7.4-10.4); Platelet Count 282 10^3/uL (130-400); Red Blood Cell Count 3.53 10^6/uL (4.70-6.10); Red Cell Dist. Width 12.8 % (11.5-14.5); White Blood Cell Count 10.7 10^3/uL (4.8-10.8)
[2024-12-11 06:38] LABS: Blood Urea Nitrogen 24 mg/dl (9-20); Calcium 8.4 mg/dl (8.4-10.2); Carbon Dioxide 25 mmol/L (22-30); Chloride 105 mmol/L (98-107); Estimated Creatinine Clearance 51 ml/min; Glucose 101 mg/dl (70-99); Potassium 4.3 mmol/L (3.5-5.1); Sodium 139 mmol/L (135-145); eGFR 56.58
[2024-12-11 07:00] VITALS: BP 133/80
[2024-12-11] MEDS: BENICAR 20 MG PO (08:33)
[2024-12-11] MEDS: ELIQUIS 10 MG PO ×2 (08:34→19:55)
[2024-12-11] MEDS: FLOMAX 0.4 MG PO (08:34)
[2024-12-11] MEDS: THERAGRAN 1 TABLET PO (08:35)
--- NOTE | 2024-12-11 13:19 | W.PN.HOSP.TC ---
Addendum entered and electronically signed by Schuyler Stockton MD 12/11/24 13:27:
Adjust diagnosis and response to CDI query
- Left lower extremity venous thrombus is acute in nature
Original Note:
Today's Communication/Plan
-
pending snf rehab placement
Assessment / Plan
Assessment / Plan
1. Left leg DVT -provoked from weakness limited mobility likely. Some swelling and discomfort in the leg. Lower extremity venous Doppler reviewed. Patient started on Eliquis and will be continued. Leg elevation recommended.
2. Essential hypertension -patient/spouse emphatically concerned about patient getting amlodipine and causing his weakness. Likely not the cause. Patient/family declined to be maintained on the medication. Will continue olmesartan for now.
Clearly patient is hypertensive at this stage and will require further medication in my opinion. BP remains controlled on the current regimen for now, will need to f/u with family physician for further discussion.
3. Sev BPH/prostatomegaly/indwelling Eli catheter -maintained on Flomax. Patient is planned to follow-up with urology in office for eventual TURP
Full code
Anticipated Discharge: Within 24 hours
Subjective/Interval History
-
Date of Service: December 11, 2024
no new issues overnight
Objective Data
-
Labs:
Laboratory Results
12/11/24
05:41
WBC 10.7
Hgb 10.8 L
Hct 32.0 L
Plt Count 282
Sodium 139
Potassium 4.3
Chloride 105
Carbon Dioxide 25
BUN 24 H
Creatinine 1.3
Glucose 101 H
Calcium 8.4
Vital Signs:
Vital Signs
Temp Pulse Resp BP Pulse Ox
98 F 71 20 133/80 96
12/11/24 07:00 12/11/24 07:00 12/11/24 07:00 12/11/24 07:00 12/11/24 07:00
I&O
12/10/24 12/11/24 12/12/24
06:59 06:59 06:59
Intake Total 1440 / 1440
Output Total 1050 / 1050 1600 / 1600
Balance 390 / 390 -1600 / -1600
Review of Systems
-
Respiratory: Reports No Symptoms
Cardiac: Reports No Symptoms
Abdomen/GI: Reports No Symptoms
Physical Exam
-
General: Obese
HEENT: Negative Oxygen
Musculoskeletal: Edema, Left Lower Extrem
Neuro: Awake, Alert, Oriented and No Motor Deficits
[2024-12-11 15:00] VITALS: BP 134/76
[2024-12-11 23:24] VITALS: BP 139/83
--- NOTE | 2024-12-12 04:33 | W.PN.UPDATE ---
Update Note
Progress Note Update
RN notes urine with some hematuria.Pt on eliquis for DVT. Will need to monitor closely.
--- NOTE | 2024-12-12 05:05 | PTCARENOTE ---
Patient complaining of lower abdominal tenderness. Eli output 400mls so far during shift, ana in color. Bladder scan showed 277mls. Irrigated Eli with 60cc per order. Urine output at approx 0400 was 250 mls. Urine color orange/blood tinged. AIX SYSTEM ADMINISTRATOR
made aware via TT. At approx 0500, urine returned to clear yellow.
--- NOTE | 2024-12-12 05:12 | PTCARENOTE ---
Patient complaining of lower abdominal tenderness. Eli output 400mls so far during shift, ana in color. Bladder scan showed 277mls. Irrigated Eli with 60cc per order. Urine output at approx 0400 was 250 mls. Urine color orange/blood tinged. FISCAL ASSISTANT
made aware via TT. At approx 0500, urine returned to ana.
[2024-12-12 07:00] VITALS: BP 148/88
[2024-12-12] MEDS: KEFLEX 500 MG PO (08:18)
[2024-12-12] MEDS: BENICAR 20 MG PO (08:19)
[2024-12-12] MEDS: FLOMAX 0.4 MG PO (08:19)
[2024-12-12] MEDS: THERAGRAN 1 TABLET PO (08:20)
[2024-12-12] MEDS: ELIQUIS 10 MG PO (08:20)
[2024-12-12 09:29] LABS: Hematocrit 32.5 % (39.0-52.0); Hemoglobin 11.1 g/dL (13.0-18.0); Mean Corp Hgb Conc. 34.2 g/dL (33.0-37.0); Mean Corpuscular Hgb 30.7 pg (27.0-31.0); Mean Platelet Volume 9.8 fL (7.4-10.4); Platelet Count 327 10^3/uL (130-400); Red Blood Cell Count 3.61 10^6/uL (4.70-6.10); Red Cell Dist. Width 12.5 % (11.5-14.5); White Blood Cell Count 10.9 10^3/uL (4.8-10.8)
[2024-12-12 09:57] LABS: Blood Urea Nitrogen 22 mg/dl (9-20); Calcium 8.7 mg/dl (8.4-10.2); Carbon Dioxide 26 mmol/L (22-30); Chloride 103 mmol/L (98-107); Estimated Creatinine Clearance 51 ml/min; Glucose 120 mg/dl (70-99); Potassium 4.4 mmol/L (3.5-5.1); Sodium 135 mmol/L (135-145); eGFR 56.58
--- NOTE | 2024-12-12 11:55 | CM ---
CM reviewed chart, patient accepted at [facility] through the [facility] waiver program, information faxed to [facility] disability representative, Gely. Patient seen bedside, agreeable to discharge to [facility]. Call to patients , Korin,
provided with cost of [place], $95, number provided to pay for transport. Patient scheduled for 3:00 p.m. transport, updates to Oscar at [facility]. CM will continue to follow for all discharge planning needs.
Plan; [facility], [facility] waiver program, 3:00 p.m. [place] transport
[facility]
Report: [phone]
[2024-12-12 15:00] VITALS: BP 139/74
--- NOTE | 2024-12-12 16:26 | W.PN.HOSP.TC ---
Today's Communication/Plan
-
d/c snf rehab
Assessment / Plan
Assessment / Plan
1. Left leg DVT -provoked from weakness limited mobility likely. Some swelling and discomfort in the leg. Lower extremity venous Doppler reviewed. Patient started on Eliquis and will be continued. Leg elevation recommended.
2. Essential hypertension -patient/spouse emphatically concerned about patient getting amlodipine and causing his weakness. Likely not the cause. Patient/family declined to be maintained on the medication. Will continue olmesartan for now.
Clearly patient is hypertensive at this stage and will require further medication in my opinion. BP remains controlled on the current regimen for now, will need to f/u with family physician for further discussion.
3. Sev BPH/prostatomegaly/indwelling Eli catheter -maintained on Flomax. Patient is planned to follow-up with urology in office for eventual TURP
4. Hematuria -minimal Eli catheter likely from Eliquis use.
Full code
More than 30 minutes spent in discharge including
Final examination of the patient
Summarizing hospital stay
Instructions for continuing care to all relevant caregivers
Preparation of discharge records, prescriptions, and referral forms
Total time spent (in minutes): 42 mins
Anticipated Discharge: Today
Subjective/Interval History
-
Date of Service: December 12, 2024
No new issues overnight
Minimal blood in the catheter
Objective Data
-
Labs:
Laboratory Results
12/12/24
09:02
WBC 10.9 H
Hgb 11.1 L
Hct 32.5 L
Plt Count 327
Sodium 135
Potassium 4.4
Chloride 103
Carbon Dioxide 26
BUN 22 H
Creatinine 1.3
Glucose 120 H
Calcium 8.7
Vital Signs:
Vital Signs
Temp Pulse Resp BP Pulse Ox
98.0 F 78 22 139/74 96
12/12/24 15:00 12/12/24 15:00 12/12/24 15:00 12/12/24 15:00 12/12/24 15:00
I&O
12/11/24 12/12/24 12/13/24
06:59 06:59 06:59
Intake Total 700 / 700
Output Total 1600 / 1600 1400 / 1400
Balance -1600 / -1600 -700 / -700
Review of Systems
-
Respiratory: Reports No Symptoms
Cardiac: Reports No Symptoms
Abdomen/GI: Reports No Symptoms
Physical Exam
-
General: Obese
HEENT: Negative Oxygen
Musculoskeletal: Edema, Left Lower Extrem
Neuro: Awake, Alert, Oriented and No Motor Deficits
--- NOTE | 2024-12-12 17:54 | W.DCSUMMARY ---
Discharge Summary
Discharge Data
Date of Admission: 12/09/24
Date of Discharge: 12/12/24
-
Pending Results: No
Hospital Course
Discharging Physician : Dr Schuyler Stockton
Disposition : To home
Primary care physician : Dr Jagjit Hernandez
Principal Discharge diagnosis :
Left leg deep venous thrombosis
Chronic Discharge diagnosis :
Benign prostatic hyperplasia
Essential hypertension
Generalized weakness/ambulatory dysfunction
Hospital Course :
Patient is a 79-year-old male with no mentioned past medical history who was just recently discharged from hospital after having a Eli malfunction came back to ER with having new onset of left leg swelling and some discomfort. Patient on venous
Doppler was found to having left leg femoral vein to posterior tibial vein. This is likely provoked with patient decreased mobility. Patient was started on oral Eliquis therapy and was monitored in the hospital. Physical therapy evaluated and
patient was deemed appropriate for rehab placement. Patient was discharged to SNF rehab with plan for follow-up in primary care physician office.
Important imaging findings :
None
Procedure findings :
None
Discharge Plan
-
Patient Disposition: Home (Routine Discharge)
Discharge Diagnosis/Procedures: Left leg DVT
Condition: Fair
Diet: Regular
Activity: As tolerated
Driving Restrictions: No driving
Bathing Restrictions: OK to Shower
Activity Restrictions/Additional Instructions:
Check Blood pressure whenever have spells of lethargy/decreased responsiveness, If systolic blood pressure 100 or low contact primary care physician office.
Referrals:
Jagjit Hernandez MD [Family Provider] - in one week
Prescriptions:
New
Eliquis 5 mg tablet
See Rx Instructions .ROUTE .COMPLEX Qty: 74 0RF
Rx Instructions:
Take 2 Tablet twice daily till 01/14 Evening THEN
Take 1 Table twice daily for maintenance
Continued
therapeutic multivitamin Tablet
1 tab PO DAILY
tamsulosin 0.4 mg Capsule
0.4 mg PO DAILY Qty: 30 0RF
olmesartan 20 mg Tablet
20 mg PO DAILY
Discontinued
amlodipine 10 mg Tablet
10 mg PO DAILY Qty: 30 0RF
cephalexin 500 mg capsule
500 mg PO Q8H 3 Days Qty: 9 0RF
Discharge Orders:
Discharge Patient (As Directed); Ordered 12/12/24
Ordered By: Schuyler Stockton
Discharge Date and Time
Discharge Date/Time: 12/12/24 15:16
Print Language: SWEDISH
== END 2024-12-12 15:16 ==
LOC: 4 WEST ACU 01:40
PROVIDERS: Nurse Practitioner; Student in an Organized Health Care Education/Training Program; ADMITTING PHYSICIAN Internal Medicine; ATTENDING PHYSICIAN Hospitalist; EMERGENCY PHYSICIAN Emergency Medicine; FAMILY PHYSICIAN Internal Medicine Geriatric Medicine
DX: I82.412 Acute embolism and thrombosis of left femoral vein (principal); R53.1 Weakness; I10 Essential (primary) hypertension; N40.1 Benign prostatic hyperplasia with lower urinary tract symptoms; R31.29 Other microscopic hematuria; R26.2 Difficulty in walking, not elsewhere classified; R33.9 Retention of urine, unspecified; Z86.73 Personal history of transient ischemic attack (TIA), and cerebral infarction without residual deficits; Z88.0 Allergy status to penicillin; Z79.01 Long term (current) use of anticoagulants; Z87.440 Personal history of urinary (tract) infections; Z79.899 Other long term (current) drug therapy
CPT/HCPCS: 80048; 80053; 81003; 81015; 85025; 85027; 87086; 93971; 97116; 97163; 97167; 99285; G0378

== ENCOUNTER → 2024-12-14 09:29 | Outpatient (REF) | payer MEDICARE, OTHER, SELFPAY ==
[2024-12-14 10:37] LABS: % Basophils 0.5 % (0-2); % Eosinophils 2.8 % (0-6); % Immature Granulocytes 0.5 % (0-0.5); % Lymphocytes 10.2 % (20.5-51.1); % Monocytes 7.1 % (1.7-9.3); % Neutrophils 78.9 % (42.2-75.2); Absolute Basophils 0.1 10^3/uL (0-0.2); Absolute Eosinophils 0.3 10^3/uL (0-0.7); Absolute Immature Granulocytes 0.1 10^3/uL (0-0.05); Absolute Monocytes 0.7 10^3/uL (0.1-0.6); Absolute Neutrophils 7.4 10^3/uL (1.4-6.5); Hematocrit 31.1 % (39.0-52.0); Hemoglobin 10.2 g/dL (13.0-18.0); Mean Corp Hgb Conc. 32.8 g/dL (33.0-37.0); Mean Corpuscular Hgb 30.2 pg (27.0-31.0); Mean Platelet Volume 10.1 fL (7.4-10.4); Nucleated Red Blood Cells % 0 % (-); Platelet Count 368 10^3/uL (130-400); Red Blood Cell Count 3.38 10^6/uL (4.70-6.10); Red Cell Dist. Width 12.5 % (11.5-14.5); White Blood Cell Count 9.4 10^3/uL (4.8-10.8)
[2024-12-14 11:48] LABS: ALT (SGPT) 17 U/L (0-50); AST (SGOT) 20 U/L (17-59); Albumin 2.3 g/dl (3.5-5.0); Alkaline Phosphatase 39 U/L (38-126); Blood Urea Nitrogen 27 mg/dl (9-20); Calcium 8.2 mg/dl (8.4-10.2); Carbon Dioxide 28 mmol/L (22-30); Chloride 101 mmol/L (98-107); Glucose 98 mg/dl (70-99); Iron 32 ug/dl (49-181); Potassium 4.7 mmol/L (3.5-5.1); Sodium 135 mmol/L (135-145); Total Bilirubin 0.6 mg/dl (0.2-1.3); Total Protein 4.9 g/dl (6.3-8.2); eGFR 47.65
[2024-12-14 11:57] LABS: Percent Saturation 26 % (20-50); Total Iron Binding Capacity 123 ug/dl (261-462)
[2024-12-14 12:01] LABS: Vitamin D, 25-OH*** 51.5 ng/mL (30-80)
== END ==
LOC: OLABN 09:29
PROVIDERS: ATTENDING PHYSICIAN Internal Medicine Geriatric Medicine
DX: I10 Essential (primary) hypertension (principal); D50.0 Iron deficiency anemia secondary to blood loss (chronic); Z79.899 Other long term (current) drug therapy
CPT/HCPCS: 36415; 80053; 82306; 82728; 83540; 83550; 85025

== ENCOUNTER → 2024-12-20 15:00 | Outpatient (REF) | payer MEDICARE, OTHER, SELFPAY | LOC: OLABN 15:00 | PROVIDERS: ATTENDING PHYSICIAN Internal Medicine Geriatric Medicine | DX: D50.0 Iron deficiency anemia secondary to blood loss (chronic) (principal) | CPT/HCPCS: 82272 ==

== ENCOUNTER → 2024-12-21 12:02 | Outpatient (REF) | payer MEDICARE, OTHER, SELFPAY | LOC: OLABN 12:02 | PROVIDERS: ATTENDING PHYSICIAN Internal Medicine Geriatric Medicine | DX: R19.5 Other fecal abnormalities (principal) | CPT/HCPCS: 87045; 87046; 87427 ==

== ENCOUNTER → 2024-12-22 04:00 | Outpatient (REF) | payer OTHER, MEDICARE, SELFPAY ==
[2024-12-22 11:13] LABS: % Basophils 0.6 % (0-2); % Eosinophils 5.1 % (0-6); % Immature Granulocytes 0.9 % (0-0.5); % Lymphocytes 16.1 % (20.5-51.1); % Monocytes 7.7 % (1.7-9.3); % Neutrophils 69.6 % (42.2-75.2); Absolute Basophils 0.1 10^3/uL (0-0.2); Absolute Eosinophils 0.4 10^3/uL (0-0.7); Absolute Immature Granulocytes 0.1 10^3/uL (0-0.05); Absolute Lymphocytes 1.3 10^3/uL (1.2-3.4); Absolute Monocytes 0.6 10^3/uL (0.1-0.6); Absolute Neutrophils 5.6 10^3/uL (1.4-6.5); Hematocrit 29.8 % (39.0-52.0); Hemoglobin 9.8 g/dL (13.0-18.0); Mean Corp Hgb Conc. 32.9 g/dL (33.0-37.0); Mean Corpuscular Hgb 30.3 pg (27.0-31.0); Mean Corpuscular Volume 92.3 fL (80.0-94.0); Mean Platelet Volume 9.8 fL (7.4-10.4); Nucleated Red Blood Cells % 0 % (-); Platelet Count 351 10^3/uL (130-400); Red Blood Cell Count 3.23 10^6/uL (4.70-6.10); Red Cell Dist. Width 12.5 % (11.5-14.5)
[2024-12-22 11:18] LABS: ALT (SGPT) 19 U/L (0-50); AST (SGOT) 16 U/L (17-59); Albumin 2.5 g/dl (3.5-5.0); Alkaline Phosphatase 42 U/L (38-126); Blood Urea Nitrogen 31 mg/dl (9-20); Calcium 8.3 mg/dl (8.4-10.2); Carbon Dioxide 28 mmol/L (22-30); Chloride 105 mmol/L (98-107); Glucose 93 mg/dl (70-99); Potassium 4.6 mmol/L (3.5-5.1); Sodium 137 mmol/L (135-145); Total Bilirubin 0.5 mg/dl (0.2-1.3); Total Protein 4.9 g/dl (6.3-8.2); eGFR 41.01
== END ==
LOC: OLABN 04:00
PROVIDERS: ATTENDING PHYSICIAN Internal Medicine Geriatric Medicine
DX: I10 Essential (primary) hypertension (principal); N18.31 Chronic kidney disease, stage 3a; R19.5 Other fecal abnormalities
CPT/HCPCS: 36415; 80053; 82272; 85025

== ENCOUNTER → 2024-12-25 15:30 | Outpatient (REF) | payer OTHER, MEDICARE, SELFPAY | LOC: OLABN 15:30 | PROVIDERS: ATTENDING PHYSICIAN Internal Medicine Geriatric Medicine | DX: R19.5 Other fecal abnormalities (principal) | CPT/HCPCS: 82272 ==

== ENCOUNTER → 2025-01-10 08:59 | Outpatient (REF) | payer MEDICARE, OTHER, SELFPAY ==
[2025-01-10 10:29] LABS: % Basophils 1.1 % (0-2); % Eosinophils 11.9 % (0-6); % Immature Granulocytes 0.3 % (0-0.5); % Lymphocytes 15.2 % (20.5-51.1); % Monocytes 9.6 % (1.7-9.3); % Neutrophils 61.9 % (42.2-75.2); Absolute Basophils 0.1 10^3/uL (0-0.2); Absolute Eosinophils 0.9 10^3/uL (0-0.7); Absolute Lymphocytes 1.1 10^3/uL (1.2-3.4); Absolute Monocytes 0.7 10^3/uL (0.1-0.6); Absolute Neutrophils 4.6 10^3/uL (1.4-6.5); Hematocrit 27.8 % (39.0-52.0); Hemoglobin 9.1 g/dL (13.0-18.0); Mean Corp Hgb Conc. 32.7 g/dL (33.0-37.0); Mean Corpuscular Hgb 29.8 pg (27.0-31.0); Mean Corpuscular Volume 91.1 fL (80.0-94.0); Mean Platelet Volume 10.1 fL (7.4-10.4); Nucleated Red Blood Cells % 0 % (-); Platelet Count 280 10^3/uL (130-400); Red Blood Cell Count 3.05 10^6/uL (4.70-6.10); Red Cell Dist. Width 13.2 % (11.5-14.5); White Blood Cell Count 7.5 10^3/uL (4.8-10.8)
[2025-01-10 10:32] LABS: D-Dimer 0.63 ug/mlFEU (0.00-0.50)
[2025-01-10 10:35] LABS: ALT (SGPT) 15 U/L (0-50); AST (SGOT) 19 U/L (17-59); Alkaline Phosphatase 48 U/L (38-126); Blood Urea Nitrogen 29 mg/dl (9-20); Calcium 8.9 mg/dl (8.4-10.2); Carbon Dioxide 27 mmol/L (22-30); Chloride 110 mmol/L (98-107); Glucose 92 mg/dl (70-99); Potassium 4.6 mmol/L (3.5-5.1); Sodium 140 mmol/L (135-145); Total Bilirubin 0.4 mg/dl (0.2-1.3); Total Protein 5.5 g/dl (6.3-8.2); eGFR 31.82
== END ==
LOC: OLABN 08:59
PROVIDERS: ATTENDING PHYSICIAN Internal Medicine Geriatric Medicine
DX: I82.412 Acute embolism and thrombosis of left femoral vein (principal); D64.9 Anemia, unspecified
CPT/HCPCS: 36415; 80053; 85025; 85379

== ENCOUNTER → 2025-01-11 09:26 | Outpatient (REF) | payer OTHER, MEDICARE, SELFPAY ==
[2025-01-11 11:49] LABS: D-Dimer 0.56 ug/mlFEU (0.00-0.50)
[2025-01-13 02:35] LABS: Beta-2-Glycoprotein I Ab. IgA 13 SAU (<=20); Beta-2-Glycoprotein I Ab. IgG <10 SGU (<=20); Beta-2-Glycoprotein I Ab. IgM <10 SMU (<=20)
[2025-01-13 06:07] LABS: Cardiolipin IgA Antibody <10 APL (<=11); Cardiolipin IgM Antibody <10 MPL (<=12); Cardiolipin Igg Antibody <10 GPL (<=14)
[2025-01-13 11:59] LABS: Protein S Total Antigen 139 % (84-134)
[2025-01-13 13:44] LABS: Factor VIII Activity 155 % (56-191)
[2025-01-13 19:37] LABS: Protein C, Total Antigen >95 % (63-153)
[2025-01-13 20:27] LABS: Anti-Thrombin III Activity 93 % (76-128)
== END ==
LOC: OLABN 09:26
PROVIDERS: ATTENDING PHYSICIAN Internal Medicine Geriatric Medicine
DX: I82.409 Acute embolism and thrombosis of unspecified deep veins of unspecified lower extremity (principal); D68.59 Other primary thrombophilia
CPT/HCPCS: 36415; 85220; 85240; 85300; 85302; 85305; 85379; 86146; 86147; 86148

== ENCOUNTER → 2025-03-10 10:31 | Outpatient (REF) | payer MEDICARE, OTHER, SELFPAY ==
[2025-03-10 12:12] LABS: D-Dimer 0.55 ug/mlFEU (0.00-0.50)
== END ==
LOC: RAD 10:31
PROVIDERS: ATTENDING PHYSICIAN Internal Medicine Hematology & Oncology; FAMILY PHYSICIAN Internal Medicine Geriatric Medicine
DX: R97.20 Elevated prostate specific antigen [PSA] (principal); R77.8 Other specified abnormalities of plasma proteins; I82.402 Acute embolism and thrombosis of unspecified deep veins of left lower extremity; N18.30 Chronic kidney disease, stage 3 unspecified; I82.592 Chronic embolism and thrombosis of other specified deep vein of left lower extremity
CPT/HCPCS: 36415; 85379; 93971

== ENCOUNTER 2025-03-16 06:05 | Day surgery (SDC) | payer MEDICARE, OTHER, SELFPAY ==
--- NOTE | 2025-03-10 14:34 | PTCARENOTE ---
Abnormal EKG on 12/05/24. Dr. Le aware. No intervention needed.
[2025-03-16 06:15] VITALS: BMI 25.5
[2025-03-16 06:20] VITALS: BP 168/90
[2025-03-16 06:35] VITALS: BMI 25.5
[2025-03-16] MEDS: NEOMYCIN ENEMA 1 BOTTLE RECTAL (06:48)
[2025-03-16] MEDS: NORMOSOL-R/PLASMALYTE-A 1000 IV (06:49)
[2025-03-16 07:27] LABS: Urine Character Slightly Cloudy (Clear)
[2025-03-16 08:13] LABS: Urine Squamous Cell 0-2 /LPF (Few)
[2025-03-16 08:14] LABS: Urine Red Blood Cell 30-40 /HPF (0-2)
[2025-03-16 08:15] VITALS: BP 116/72
[2025-03-16 08:15] LABS: Urine White Cell 30-40 /HPF (0-5)
[2025-03-16 08:30] VITALS: BP 149/81
[2025-03-16 08:45] VITALS: BP 151/85
== END 2025-03-16 09:13 | disposition home or self-care (01) ==
LOC: SDS 06:05
PROVIDERS: ATTENDING PHYSICIAN Specialist
DX: N41.0 Acute prostatitis (principal); N41.1 Chronic prostatitis; N42.89 Other specified disorders of prostate; N40.1 Benign prostatic hyperplasia with lower urinary tract symptoms; R33.8 Other retention of urine; R97.20 Elevated prostate specific antigen [PSA]
CPT/HCPCS: 55700; 76998; 81003; 81015; 87077; 87086; 87186; 88305; 88344; J1580

== ENCOUNTER → 2025-05-18 07:22 | Outpatient (REF) | payer MEDICARE, OTHER, SELFPAY ==
[2025-05-18 09:31] LABS: Hematocrit 34.5 % (39.0-52.0); Hemoglobin 11.2 g/dL (13.0-18.0); Mean Corp Hgb Conc. 32.5 g/dL (33.0-37.0); Mean Corpuscular Volume 91.3 fL (80.0-94.0); Nucleated Red Blood Cells % 0 % (-); Platelet Count 267 10^3/uL (130-400); Red Cell Dist. Width 12.8 % (11.5-14.5)
[2025-05-18 10:30] LABS: ALT (SGPT) 12 U/L (0-50); AST (SGOT) 18 U/L (17-59); Albumin 3.8 g/dl (3.5-5.0); Alkaline Phosphatase 59 U/L (38-126); Blood Urea Nitrogen 31 mg/dl (9-20); Calcium 9.1 mg/dl (8.4-10.2); Carbon Dioxide 26 mmol/L (22-30); Chloride 109 mmol/L (98-107); Glucose 102 mg/dl (70-99); Iron 56 ug/dl (49-181); Potassium 4.8 mmol/L (3.5-5.1); Sodium 138 mmol/L (135-145); Total Protein 6.6 g/dl (6.3-8.2); eGFR 31.82
[2025-05-18 10:39] LABS: Total Iron Binding Capacity 209 ug/dl (261-462)
[2025-05-18 11:16] LABS: Ferritin 327.0 ng/ml (17.9-464.0)
[2025-05-18 11:30] LABS: Vitamin B12 646 pg/ml (239-931)
== END ==
LOC: HWLAB 07:22
PROVIDERS: ATTENDING PHYSICIAN Internal Medicine Hematology & Oncology; FAMILY PHYSICIAN Internal Medicine Geriatric Medicine
DX: R97.20 Elevated prostate specific antigen [PSA] (principal); R77.8 Other specified abnormalities of plasma proteins; I82.402 Acute embolism and thrombosis of unspecified deep veins of left lower extremity; N18.30 Chronic kidney disease, stage 3 unspecified; E78.2 Mixed hyperlipidemia; E03.8 Other specified hypothyroidism; I11.9 Hypertensive heart disease without heart failure; I10 Essential (primary) hypertension; N40.1 Benign prostatic hyperplasia with lower urinary tract symptoms; E55.9 Vitamin D deficiency, unspecified; Z13.89 Encounter for screening for other disorder; I82.432 Acute embolism and thrombosis of left popliteal vein; R79.89 Other specified abnormal findings of blood chemistry; E53.8 Deficiency of other specified B group vitamins
CPT/HCPCS: 36415; 80053; 82607; 82728; 83540; 83550; 85025; 85300; 85610; 85613; 85730

== ENCOUNTER → 2025-07-11 07:58 | Outpatient (REF) | payer MEDICARE, OTHER, SELFPAY ==
[2025-07-11 11:13] LABS: PSA, Total - Diagnostic 1.09 ng/ml (0.0-4.0)
== END ==
LOC: HWLAB 07:58
PROVIDERS: FAMILY PHYSICIAN Internal Medicine Geriatric Medicine
DX: N40.1 Benign prostatic hyperplasia with lower urinary tract symptoms (principal); R33.8 Other retention of urine
CPT/HCPCS: 36415; 84153

== ENCOUNTER → 2025-08-08 07:07 | Outpatient (REF) | payer MEDICARE, OTHER, SELFPAY ==
[2025-08-08 07:47] LABS: Urine Character Clear (Clear)
[2025-08-08 07:55] LABS: Hematocrit 41.4 % (39.0-52.0); Hemoglobin 13.9 g/dL (13.0-18.0); Mean Corp Hgb Conc. 33.6 g/dL (33.0-37.0); Mean Corpuscular Volume 91.8 fL (80.0-94.0); Nucleated Red Blood Cells % 0 % (-); Platelet Count 235 10^3/uL (130-400); Red Cell Dist. Width 13.1 % (11.5-14.5)
[2025-08-08 08:10] LABS: ALT (SGPT) 21 U/L (0-50); AST (SGOT) 30 U/L (17-59); Albumin 4.3 g/dl (3.5-5.0); Alkaline Phosphatase 62 U/L (38-126); Blood Urea Nitrogen 26 mg/dl (9-20); Calcium 9.2 mg/dl (8.4-10.2); Carbon Dioxide 26 mmol/L (22-30); Chloride 106 mmol/L (98-107); Glucose 99 mg/dl (70-99); HDL Cholesterol 74 mg/dl; LDL Cholesterol, Calculated 152 mg/dl; Potassium 4.5 mmol/L (3.5-5.1); Sodium 137 mmol/L (135-145); Total Protein 7.3 g/dl (6.3-8.2); Very Low Density Lipoprotein 19 mg/dl (0-30); eGFR 38.05
[2025-08-08 08:24] LABS: Vitamin D, 25-OH*** 60.4 ng/mL (30-80)
[2025-08-08 08:26] LABS: Urine White Cell 30-40 /HPF (0-5)
[2025-08-11 09:32] LABS: Aldosterone/Renin Activ Ratio 8.6 ratio (<=25.0); Renin Activity Results 1.8 ng/mL/hr
== END ==
LOC: REG 07:07
PROVIDERS: ATTENDING PHYSICIAN Internal Medicine Geriatric Medicine
DX: N18.31 Chronic kidney disease, stage 3a (principal); E78.2 Mixed hyperlipidemia; E03.8 Other specified hypothyroidism; I11.9 Hypertensive heart disease without heart failure; I10 Essential (primary) hypertension; N40.1 Benign prostatic hyperplasia with lower urinary tract symptoms; E55.9 Vitamin D deficiency, unspecified; Z13.89 Encounter for screening for other disorder; I82.432 Acute embolism and thrombosis of left popliteal vein
CPT/HCPCS: 36415; 80053; 80061; 81003; 81015; 82088; 82306; 83835; 84244; 85025